=== PATIENT | female | born 1940 | race Caucasian/White ===

== ENCOUNTER → 2016-11-16 | Outpatient (CLI) | payer OTHER ==
[~2016-11-16] MED LIST: ACET-1138 PO; ATOR-24 PO; CALCTAB65; CHOL20005 PO; CYCL10TA6 PO; DILT120C68 PO; FRRG PO; LVNIS40 SQ; MAGN400T6 PO; OXYC15TA89 PO; RXC5 PO; SENN8.6T94 PO; SENNTAB23 PO; TEMA-79 PO
[2016-11-16 12:45] LABS: CHOLESTEROL/HDL RATIO 3.2
[2016-11-16 13:39] LABS: ESTIMATED AVERAGE GLUCOSE 120 mg/dl; HA1C FLAG Normal (Normal)
== END | disposition home or self-care (01) ==
LOC: C.LABBFT 09:15
PROVIDERS: ATTEND Internal Medicine
DX: E11.65 Type 2 diabetes mellitus with hyperglycemia (principal); E78.5 Hyperlipidemia, unspecified

== ENCOUNTER → 2017-04-10 | Outpatient (CLI) | payer OTHER ==
[2017-04-10 13:13] LABS: ESTIMATED AVERAGE GLUCOSE 117 mg/dl; HA1C FLAG Normal (Normal)
[2017-04-10 14:12] LABS: BLOOD UREA NITROGEN 12 mg/dl (7-18); BUN/CREATININE RATIO 14.2 (10-20); CARBON DIOXIDE 31 mmol/L (21-32); CHLORIDE 106 mmol/L (98-107); CREATININE 0.83 mg/dl (0.60-1.20); GLUCOSE 100 mg/dl (70-99); POTASSIUM 3.9 mmol/L (3.5-5.1); SODIUM 144 mmol/L (136-145)
== END | disposition home or self-care (01) ==
LOC: C.LABBFT 08:36
PROVIDERS: ATTEND Nurse Practitioner
DX: I10 Essential (primary) hypertension (principal); E11.65 Type 2 diabetes mellitus with hyperglycemia

== ENCOUNTER → 2017-04-12 | Outpatient (CLI) | payer OTHER | END | disposition home or self-care (01) | LOC: C.LABBFT 11:40 | PROVIDERS: ATTEND Internal Medicine | DX: R35.0 Frequency of micturition (principal) ==

== ENCOUNTER → 2017-05-03 | Outpatient (CLI) | payer OTHER | END | disposition home or self-care (01) | LOC: C.MAMM 10:13 | PROVIDERS: ATTEND Internal Medicine | DX: M81.0 Age-related osteoporosis without current pathological fracture (principal) ==

== ENCOUNTER → 2017-06-14 | Outpatient (CLI) | payer OTHER ==
--- NOTE | 2017-06-14 11:37 | DIAGNOSTIC IMAGING REPORT ---
RIGHT LOWER EXTREMITY VENOUS DOPPLER HISTORY: R LEG PAIN/SWELLING Right COMPARISON STUDY: Venous Doppler 09/25/2013. FINDINGS: There is normal compressibility, flow, and augmentation within the right lower extremity deep venous system. IMPRESSION: No DVT within the right lower extremity Electronically signed by: Chente Daniels M.D. 06/14/2017 11:36 AM Dictated Date/Time: 06/14/2017 11:35 AM
== END | disposition home or self-care (01) ==
LOC: C.ULTR 10:44
PROVIDERS: ATTEND Physician Assistant Medical
DX: M79.89 Other specified soft tissue disorders (principal); M79.604 Pain in right leg

== ENCOUNTER → 2017-09-01 | Outpatient (CLI) | payer OTHER | END | disposition home or self-care (01) | LOC: C.PAPS 10:00 | PROVIDERS: ATTEND Obstetrics & Gynecology | DX: C56.9 Malignant neoplasm of unspecified ovary (principal); Z78.0 Asymptomatic menopausal state ==

== ENCOUNTER → 2017-09-01 | Outpatient (CLI) | payer OTHER ==
[2017-09-01 17:40] LABS: BLOOD UREA NITROGEN 11 mg/dl (7-18); BUN/CREATININE RATIO 10.6 (10-20); CALCIUM 9.7 mg/dl (8.5-10.1); CARBON DIOXIDE 30 mmol/L (21-32); CHLORIDE 97 mmol/L (98-107); CREATININE 1.06 mg/dl (0.60-1.20); GLUCOSE 121 mg/dl (70-99); POTASSIUM 3.2 mmol/L (3.5-5.1); SODIUM 139 mmol/L (136-145)
== END | disposition home or self-care (01) ==
LOC: C.LAB1850 16:14
PROVIDERS: ATTEND Internal Medicine
DX: I10 Essential (primary) hypertension (principal); C56.9 Malignant neoplasm of unspecified ovary

== ENCOUNTER → 2017-12-05 | Outpatient (CLI) | payer OTHER ==
--- NOTE | 2017-12-05 09:55 | DIAGNOSTIC IMAGING REPORT ---
CHEST 2 VIEWS ROUTINE HISTORY: I10 Hypertension [id number] COMPARISON: Chest 02/15/2016. FINDINGS: No pneumothorax. The heart remains enlarged. No change in the mild left lateral basilar pleural thickening. No evidence for pulmonary edema. No new focal lung consolidations to suggest pneumonia. An IVC filter is partially visualized. Mild bibasilar interstitial thickening persists. This is likely chronic. IMPRESSION: No significant change compared to the prior study. No acute process. Stable cardiomegaly and basilar interstitial thickening. Electronically signed by: Chente Daniels M.D. 12/05/2017 9:53 AM Dictated Date/Time: 12/05/2017 9:52 AM
== END | disposition home or self-care (01) ==
LOC: C.RAD1850 09:42
PROVIDERS: ATTEND Physician Assistant Medical
DX: I10 Essential (primary) hypertension (principal)

== ENCOUNTER → 2017-12-05 | Outpatient (CLI) | payer OTHER ==
[2017-12-05 12:24] LABS: BASO % 0.8 %; BASO ABS # 0.04 K/uL (0-0.2); HEMATOCRIT 43.3 % (37-47); HEMOGLOBIN 14.2 g/dL (12.0-16.0); IG# 0.01 K/uL (0.00-0.02); LYMPH % 35.2 %; LYMPH ABS # 1.79 K/uL (1.2-3.4); MEAN CELL VOLUME 94.5 fL (80-100); MEAN CORPUSCULAR HGB CONC 32.8 g/dl (32-36); MEAN PLATELET VOLUME 10.5 fL (7.4-10.4); MONO % 7.3 %; MONO ABS # 0.37 K/uL (0.11-0.59); NEUT % 54.5 %; NEUT ABS # 2.77 K/uL (1.4-6.5); PLATELET COUNT 183 K/uL (130-400); RED CELL DISTRIBUTION WIDTH CV 13.6 % (11.5-14.5); RED CELL DISTRIBUTION WIDTH SD 46.6 fL (36.4-46.3); WHITE BLOOD COUNT 5.08 K/uL (4.8-10.8)
[2017-12-05 13:34] LABS: BLOOD UREA NITROGEN 7 mg/dl (7-18); CALCIUM 9.1 mg/dl (8.5-10.1); CARBON DIOXIDE 25 mmol/L (21-32); CREATININE 0.99 mg/dl (0.60-1.20); GLUCOSE 122 mg/dl (70-99); GLUCOSE,FASTING 122 mg/dl (70-99); POTASSIUM 3.1 mmol/L (3.5-5.1); SODIUM 137 mmol/L (136-145)
[2017-12-05 13:37] LABS: CHOLESTEROL 200 mg/dl (0-200); LDL CHOLESTEROL CALCULATED 99 mg/dl
== END | disposition home or self-care (01) ==
LOC: C.LABBFT 08:53
PROVIDERS: ATTEND Physician Assistant Medical
DX: I10 Essential (primary) hypertension (principal); E87.6 Hypokalemia; E78.5 Hyperlipidemia, unspecified; E11.65 Type 2 diabetes mellitus with hyperglycemia; E55.9 Vitamin D deficiency, unspecified

== ENCOUNTER → 2018-02-20 | Outpatient (CLI) | payer OTHER ==
--- NOTE | 2018-02-20 18:12 | DIAGNOSTIC IMAGING REPORT ---
MRI LUMBAR SPINE W/O CONTRAST CLINICAL HISTORY: M54.5 persistent back pain, history of ovarian carcinoma. TECHNIQUE: Sagittal and axial T1, T2 and STIR images were obtained. COMPARISON STUDY: No previous studies for comparison. OBSERVATIONS: The vertebral bodies and posterior elements appear intact. There is no abnormal bony signal present to suggest a marrow replacement process. L1-2: There is a mild circumferential disc bulge asymmetric to the left. There is no significant spinal stenosis. There is minimal left-sided foraminal narrowing. L2-3: There is a mild circumferential disc bulge. There is facet joint arthropathy. There is minimal spinal canal narrowing. There is no significant foraminal narrowing L3-4: There is a mild circumferential disc bulge. There is a minimal grade 1 spondylolisthesis of L3 on L4. There is slight flattening of the anterior thecal sac. There is no significant foraminal narrowing L4-5: No disc protrusions or extrusions. No evidence of spinal canal or neural foraminal compromise. There is facet joint arthropathy L5-S1: No disc protrusions or extrusions. No evidence of spinal canal or neural foraminal compromise. The conus medullaris and cauda equina appear normal. IMPRESSION: 1. Mild multilevel spondylitic change. No evidence of high-grade spinal stenosis. 2. No evidence of suspicious marrow replacement Electronically signed by: Gabo Farah M.D. 02/20/2018 6:11 PM Dictated Date/Time: 02/20/2018 6:07 PM
== END | disposition home or self-care (01) ==
LOC: C.MRI 17:14
PROVIDERS: ATTEND Nurse Practitioner
DX: M47.896 Other spondylosis, lumbar region (principal)

== ENCOUNTER 2019-06-27 11:37 | Inpatient (IN) ==
--- NOTE | 2019-06-11 10:40 | PAT Medication Instructions ---
Medication Instructions Date of Service June 11, 2019 Home Medications Medication Instructions Recorded atorvastatin 80 mg tablet 80 mg PO HS #90 tab 04/07/19 calcium carbonate 500 mg (1,250 1 tab PO DAILY #90 tab 04/07/19 mg)-vitamin D3 200 unit tablet cholecalciferol (vitamin D3) 2,000 2,000 unit PO QAM #90 tab 04/07/19 unit tablet ferrous sulfate 325 mg (65 mg 325 mg PO DAILY #90 tab 04/07/19 iron) tablet ketoconazole 2 % topical cream 1 applic TOPICAL BID PRN #60 gm 04/07/19 magnesium 400 mg (as magnesium 400 mg PO DAILY #90 tab 04/07/19 oxide) tablet meloxicam 7.5 mg tablet 7.5 mg PO BID PRN #180 tab 04/07/19 potassium chloride ER 20 mEq 20 meq PO BID #180 tab 04/07/19 tablet,extended release sennosides 8.6 mg tablet 17.2 mg PO HS PRN #180 tab 04/07/19 acetaminophen ER 650 mg 650 mg PO Q8H PRN #90 tab 04/10/19 tablet,extended release lorazepam 0.5 mg tablet 1 mg PO ONCE #3 tab 04/11/19 zolpidem 10 mg tablet 10 mg PO HS #14 tab 05/20/19 gabapentin 300 mg capsule 300 mg PO TID #270 cap 05/28/19 hydrocodone 5 mg-acetaminophen 325 1 tab PO Q8H #90 tab 05/28/19 mg tablet diltiazem ER 240 mg 240 mg PO QAM #90 tab 06/07/19 tablet,extended release 24 hr hydrochlorothiazide 25 mg tablet 25 mg PO QAM #90 tab 06/10/19 omeprazole 20 mg tablet,delayed 40 mg PO DAILY #180 tab 06/10/19 release ASK your surgeon for instructions meloxicam 7.5 mg tablet 7.5 mg PO BID NEEDED STOP taking 24 hours before surgery ketoconazole 2 % topical cream 1 applic TOPICAL BID NEEDED DO NOT take the morning of surgery calcium carbonate 500 mg (1,250 mg)-vitamin D3 200 unit tablet 1 tab PO DAILY cholecalciferol (vitamin D3) 2,000 unit tablet 2,000 unit PO QAM ferrous sulfate 325 mg (65 mg iron) tablet 325 mg PO DAILY magnesium 400 mg (as magnesium oxide) tablet 400 mg PO DAILY potassium chloride ER 20 mEq tablet,extended release 20 meq PO BID hydrochlorothiazide 25 mg tablet 25 mg PO QAM Take morning of surgery With a small sip of water, OTHERWISE NOTHING TO EAT OR DRINK AFTER MIDNIGHT: gabapentin 300 mg capsule PO TID diltiazem ER 240 mg tablet,extended release 24 hr 240 mg PO QAM omeprazole 20 mg tablet,delayed release 40 mg PO DAILY hydrocodone 5 mg-acetaminophen 325 mg tablet 1 tab PO Q8H (STOP 4 hours before surgery) acetaminophen [Tylenol 8 Hour] 650 mg PO Q8H NEEDED (if needed; STOP 4 hours before surgery) Take evening before surgery atorvastatin 80 mg tablet 80 mg PO HS potassium chloride ER 20 mEq tablet,extended release 20 meq PO BID zolpidem 10 mg tablet 10 mg PO HS gabapentin 300 mg capsule PO TID hydrocodone 5 mg-acetaminophen 325 mg tablet 1 tab PO Q8H acetaminophen [Tylenol 8 Hour] 650 mg PO Q8H NEEDED (if needed) sennosides 8.6 mg tablet 17.2 mg PO HS NEEDED (if needed) Other Notes If you have any questions please call us at [phone] or [phone] or [phone] or [phone]
--- NOTE | 2019-06-11 11:35 | Anesthesiology Consultation ---
Date of Service June 11, 2019 Assessment & Plan (1) Encounter for pre-operative examination: Chart Review Chart Review: Acceptable Risk for Surgery and Patient seen in Pre Admission Testing Consults Requested medical ([facility] (06/10)) Patient was seen by PCPs office on 06/10 for preoperative evaluation. Per not from that visit, "She has no present contraindications for surgery. Surgical risk is intermediate." Teaching & Discussion Pre-Anesthesia Teaching/Discussion Notes: Instructed NPO after midnight before surgery, except medications with 15 cc of water. Medication instructions provided according to the PAT guidelines. History Surgery Operation Date: 06/27/19 10:55 Proposed Procedures p Left Reversed Total Shoulder Arthroplasty, Biceps Tenodesis - Stefan Kahn MD Height/Weight Height: 5 ft 3 in Weight: 124.2 kg Allergies Allergy/AdvReac Type Severity Reaction Status Date / Time estrogens, conjugated Allergy Unknown Unknown Verified 06/10/19 10:18 reaction medroxyprogesterone Allergy Unknown Unknown Verified 06/10/19 10:18 reaction nickel Allergy Rash Verified 06/10/19 10:18 Medications Home Medications Medication Instructions Recorded Confirmed Last Taken acetaminophen [Tylenol 8 Hour] 650 mg PO Q12H PRN 04/01/19 06/10/19 05/13/19 atorvastatin 80 mg tablet 80 mg PO HS #90 tab 04/07/19 06/10/19 05/13/19 calcium carbonate 500 mg (1,250 1 tab PO DAILY #90 tab 04/07/19 06/10/19 05/13/19 mg)-vitamin D3 200 unit tablet cholecalciferol (vitamin D3) 2,000 2,000 unit PO QAM #90 tab 04/07/19 06/10/19 05/13/19 unit tablet ferrous sulfate 325 mg (65 mg 325 mg PO DAILY #90 tab 04/07/19 06/10/19 05/13/19 iron) tablet ketoconazole 2 % topical cream 1 applic TOPICAL BID PRN #60 gm 04/07/19 06/10/19 05/13/19 magnesium 400 mg (as magnesium 400 mg PO DAILY #90 tab 04/07/19 06/10/19 05/13/19 oxide) tablet meloxicam 7.5 mg tablet 7.5 mg PO BID PRN #180 tab 04/07/19 06/10/19 05/13/19 potassium chloride ER 20 mEq 20 meq PO BID #180 tab 04/07/19 06/10/19 05/13/19 tablet,extended release sennosides 8.6 mg tablet 17.2 mg PO HS PRN #180 tab 04/07/19 06/10/19 05/13/19 acetaminophen ER 650 mg 650 mg PO Q8H PRN #90 tab 04/10/19 06/10/19 05/13/19 tablet,extended release lorazepam 0.5 mg tablet 1 mg PO ONCE #3 tab 04/11/19 06/10/19 05/13/19 zolpidem 10 mg tablet 10 mg PO HS #14 tab 05/20/19 06/10/19 Unknown gabapentin 300 mg capsule 300 mg PO TID #270 cap 05/28/19 06/10/19 Unknown hydrocodone 5 mg-acetaminophen 325 1 tab PO Q8H #90 tab 05/28/19 06/10/19 Unkno wn mg tablet diltiazem ER 240 mg 240 mg PO QAM #90 tab 06/07/19 06/10/19 Unknown tablet,extended release 24 hr hydrochlorothiazide 25 mg tablet 25 mg PO QAM #90 tab 06/10/19 06/10/19 Unknown omeprazole 20 mg tablet,delayed 40 mg PO DAILY #180 tab 06/10/19 06/10/19 Unknown release Past Medical History Medical History Borderline diabetes mellitus GERD (gastroesophageal reflux disease) HTN (hypertension) History of migraine History of ovarian cancer 2010 - s/p LLOYD BSO + chemo Hyperlipidemia Morbid obesity Osteoarthritis Pulmonary embolism 2011 - treated w/ blood thinners - r/t cancer Exercise / Class Metabolic Activity III < 4 Walking/Shop/Light housework (Limited due to knee, back, and shoulder pain. Hasn't tried to climb a stair in a long time. Does report SOB and fatigue with activity. Denies CP. ) Past Family History Family History Grandfather (Paternal) Family history of diabetes mellitus Mother Congestive heart failure Father Multiple organ failure Other Hypertension Psoriasis Past Surgical History Surgical History History of arthroscopy of shoulder BL History of bilateral cataract extraction History of colonoscopy History of right knee joint replacement History of tooth extraction History of total abdominal hysterectomy and bilateral salpingo-oophorectomy History of tubal ligation History of vascular access device Removed Past Anesthesia History No Hx of Anesthesia Complications and No Family Hx of Anesthesia Complications History of PONV No Hx of PONV and No Hx of Motion Sickness Social History Smoking Status: Never smoker Do You Dip or Chew Tobacco: No Hx Alcohol Use: Yes Alcohol type: wine and hard liquor alcohol intake frequency: a few times a week Hx Substance Use: No substance use type: does not use Review of Systems Patient denies chest pain, shortness of breath, dyspnea on exertion reflux, cough, wheezing, palpitations. +ARZATE +Joint Pain (Shoulder, Back, Knees) Physical Exam Vital Signs BP: 148/68 P: 74 R: 18 T: 97.8 SPO2: 97% on RA Constitutional + morbidly obese ENMT Mouth: + dentures (Upper denture plate) and + poor dentition Thyromental Distance: < 3.5 Finger Breadths (2.5) Mallampati Class: III Mouth / Teeth: 1. Upper denture plate 2. Partial Neck normal visual inspection and + limited neck extension Respiratory normal respiratory effort Auscultation: lungs clear to auscultation bilaterally Cardiovascular Rate/Rhythm: regular rate and regular rhythm Heart Sounds: + murmur (1/6 systolic) Vessels: no carotid bruit Neurologic moves all extremities Psychiatric Orientation: alert and oriented x 3 Testing Laboratory Results 06/11/19 11:46 06/11/19 11:46 PT 10.7 Seconds (9.0-12.0) 06/11/19 11:46 INR 1.0 (0.9-1.1) 06/11/19 11:46 APTT 24.7 Seconds (21.0-31.0) 06/11/19 11:46 Hemoglobin A1c 6.3 % (4.5-5.6) H 06/11/19 11:46 Urine Color Yellow 06/11/19 Unknown Urine Appearance Clear (Clear) 06/11/19 Unknown Urine pH 8.0 (4.5-7.5) H 06/11/19 Unknown Ur Specific [place] 1.008 (1.000-1.030) 06/11/19 Unknown Urine Protein Negative (Negative) 06/11/19 Unknown Urine Glucose (UA) Negative (Negative) 06/11/19 Unknown Urine Ketones Negative (Negative) 06/11/19 Unknown Urine Nitrite Negative (Negative) 06/11/19 Unknown Ur Leukocyte Esterase Trace (Negative) H 06/11/19 Unknown Urine WBC (Auto) 1-5 /hpf (0-5) 06/11/19 Unknown Urine RBC (Auto) 0-4 /hpf (0-4) 06/11/19 Unknown U Hyaline Cast (Auto) 0 /lpf (0-5) 06/11/19 Unknown U Epithel Cells (Auto) 20-30 /lpf (0-5) H 06/11/19 Unknown Urine Bacteria (Auto) Negative (Negative) 06/11/19 Unknown Blood Type A Positive 06/11/19 11:46 Antibody Screen NEGATIVE 06/11/19 11:46 Electrocardiogram Date: 06/11/19 Findings: + NSR @ (77) and + no change from (02/15/16) Chest X-Ray Date: 06/11/19 FINDINGS: Lung volumes are normal. There is no pneumothorax or pleural effusion. Hazy left basilar opacity is due to epicardial fat pad. This is unchanged. There is no consolidation to suggest pneumonia. Apparent hazy left basilar opacity is unchanged. Note is made of mild cardiomegaly. The appearance of the chest is unchanged. IVC filter is partially imaged. IMPRESSION: 1. No acute cardiopulmonary findings. No change in appearance of the chest. 2. Mild cardiomegaly.
--- NOTE | 2019-06-11 12:19 | XRay Report ---
XR chest Pre-admission PA/Lat CLINICAL HISTORY: Preoperative evaluation. COMPARISON STUDY: Chest radiograph September 25, [address] October 23, 2013. Chest radiograph December 05, 2017. FINDINGS: Lung volumes are normal. There is no pneumothorax or pleural effusion. Hazy left basilar op acity is due to epicardial fat pad. This is unchanged. There is no consolidation to suggest pneumonia . Apparent hazy left basilar opacity is unchanged. Note is made of mild cardiomegaly. The appearance of the chest is unchanged. IVC filter is partially imaged. IMPRESSION: 1. No acute cardiopulmonary findings. No change in appearance of the chest. 2. Mild cardiomegaly. Electronically signed by: Tiago Reno M.D. 06/11/2019 12:18 PM
[2019-06-11 12:26] LABS: Basophils # (auto) 0.03 K/uL (0-0.2); Basophils % (auto) 0.6 %; Eosinophils # (auto) 0.08 K/uL (0-0.5); Eosinophils % (auto) 1.7 %; Hemoglobin 12.3 g/dL (12.0-16.0); Immature Granulocytes # (auto) 0.01 K/uL (0.00-0.02); Immature Granulocytes % (auto) 0.2 %; Lymphocytes # (auto) 1.29 K/uL (1.2-3.4); Lymphocytes % (auto) 27.7 %; Mean Corpuscular Hgb Conc 31.5 g/dL (32-36); Mean Corpuscular Volume 94.2 fL (80-100); Mean Platelet Volume 10.3 fL (7.4-10.4); Monocytes # (auto) 0.34 K/uL (0.11-0.59); Monocytes % (auto) 7.3 %; Neutrophils % (auto) 62.5 %; Platelet Count 191 K/uL (130-400); RDW Coefficient of Variation 13.9 % (11.5-14.5); RDW Standard Deviation 47.8 fL (36.4-46.3); Red Blood Count 4.14 M/uL (4.2-5.4); White Blood Count 4.65 K/uL (4.8-10.8)
[2019-06-11 12:31] LABS: Appearance Urine Clear (Clear); Bacteria Urine Automated Negative (Negative); Bilirubin Urine Negative (Negative); Blood Urine Negative (Negative); Cast Urine Automated 0 /lpf (0-5); Color Urine Yellow; Epithelial Cell Urine Auto 20-30 /lpf (0-5); Glucose Urine UA Negative (Negative); Ketones Urine Negative (Negative); Leukocyte Esterase Urine Trace (Negative); Nitrite Urine Negative (Negative); Protein Urine Negative (Negative); RBC Urine Automated 0-4 /hpf (0-4); Specific Gravity Urine 1.008 (1.000-1.030); Urobilinogen Urine Negative (Negative)
[2019-06-11 12:40] LABS: Partial Thromboplastin Ratio 0.9; Partial Thromboplastin Time 24.7 Seconds (21.0-31.0); Prothrombin Time 10.7 Seconds (9.0-12.0)
[2019-06-11 12:48] LABS: Estimated Average Glucose 134 mg/dl; Hemoglobin A1C 6.3 % (4.5-5.6)
[2019-06-11 14:45] LABS: Albumin Level 3.2 gm/dl (3.4-5.0); BUN Creatinine Ratio 11.2 (10-20); Creatinine Clr Calc Pharmacy 67.5 ml/min; Est GFR (African American) 72.9; Est GFR (Non-African American) 62.9; Potassium 3.5 mmol/L (3.5-5.1)
--- NOTE | 2019-06-26 18:14 | History and Physical Report ---
DATE OF ADMISSION: 06/27/2019 CHIEF COMPLAINT: Chronic left shoulder pain and weakness. HISTORY OF PRESENT ILLNESS: This is a 78-year-old female patient of Dr. Kahn'ivana complaining of chronic left shoulder rotator cuff tear with weakness and pain. She has failed conservative treatment. She has been diagnosed with MRI and x-rays and wishes to proceed with a left reverse total shoulder arthroplasty and biceps tenodesis. PAST MEDICAL HISTORY: Hypertension, hypercholesterolemia, pulmonary embolism in 2010, upper back problems, sciatica, obesity, ovarian cancer. SOCIAL HISTORY: Nonsmoker, nondrinker. PAST SURGICAL HISTORY: Ovarian surgery secondary to cancer, right knee replacement, bilateral cataracts, left shoulder scope and right shoulder scope. FAMILY HISTORY: Noncontributory. REVIEW OF SYSTEMS: Chronic left shoulder pain and weakness. Otherwise, denies any shortness of breath, chest pain, nausea, vomiting or any other joint complaints. MEDICATIONS: 1. Lovenox 150 mg subQ every 12 hours. 2. Magnesium 200 mg 2 tablets daily. 3. Temazepam 15 mg at bedtime as needed. 4. Crestor 10 mg daily. 5. Cyclobenzaprine daily. 6. Diltiazem 120 mg daily. 7. Lisinopril 20 mg daily. 8. Ambien 10 mg at bedtime. 9. Zetia 10 mg daily. 10. Omeprazole 10 mg 2 capsules daily. 11. Fosamax 75 1 every week in the morning. 12. Mobic 15 mg daily. ALLERGIES: No known drug allergies. PHYSICAL EXAMINATION: GENERAL: Well-developed, well-nourished 78-year-old female in no acute distress. She is alert and oriented x3 and pleasant. HEENT: Normocephalic, atraumatic. Extraocular motions are intact. Pupils are equal and reactive to light. HEART: Regular rate and rhythm, no murmurs. LUNGS: Clear. ABDOMEN: Soft, nontender, bowel sounds present. EXTREMITIES: Left shoulder active range of motion of 0-120, passively to 170 with pain. She has 4/5 strength with pain globally. Neurologically and vascularly she is intact in her left upper extremity. DIAGNOSES: Left shoulder rotator cuff arthropathy. She also has a history of hypertension, hypercholesterolemia, pulmonary embolism, upper back problems, sciatica, obesity and ovarian cancer. PLAN: The patient was advised of her diagnosis. Indications, risks, benefits, postop course have all been reviewed. The patient wished to proceed with a left reverse total shoulder arthroplasty and biceps tenodesis. Necessary consent forms, preoperative testing and clearances will be obtained. JESSICA
[~2019-06-27 11:37] MED LIST changes: -ACET-1138 PO; +ACETAMINOPHEN 500 MG TAB PO SCH; -ATOR-24 PO; -CALCTAB65; +CEFAZOLIN 3000MG 72.5 ML IV SCH; -CHOL20005 PO; -CYCL10TA6 PO; +CeleBREX 200 MG CAP PO SCH; -DILT120C68 PO; +FAMOTIDINE 20 MG TAB PO SCH; -FRRG PO; +GABAPENTIN 300 MG CAP PO SCH; +LR 15ML/HR IV SCH; -LVNIS40 SQ; -MAGN400T6 PO; +METOCLOPRAMIDE HCL 10 MG TABLET PO SCH; -OXYC15TA89 PO; +ROPIVACAINE 0.5% 5 MG/ML 30 ML VIAL ONE; -RXC5 PO; -SENN8.6T94 PO; -SENNTAB23 PO; -TEMA-79 PO; +dexAMETHasone 4 MG TAB PO SCH
[2019-06-27] MEDS ORDERED: LIDOCAINE HCL 2% 2 ML VIAL/AMP(20MG/ML) INFIL ONE (11:57)
[2019-06-27] MEDS ORDERED: DEXAMETHASONE SOD INJ 4 MG/ML VIAL ONE (11:57)
[2019-06-27] MEDS ORDERED: ONDANSETRON INJ 2 MG/ML 2 ML VIAL ONE (11:57)
[2019-06-27] MEDS ORDERED: ROCURONIUM BROMIDE 10 MG/ML 5 ML VIAL ONE (11:57)
[2019-06-27] MEDS ORDERED: GLYCOPYRROLATE 0.2 MG/ML VIAL ONE ×2 (11:57→17:33)
[2019-06-27] MEDS ORDERED: PROPOFOL IV EMULSION 10 MG/ML 20 ML VIAL IV ONE (11:57)
[2019-06-27] MEDS ORDERED: MIDAZOLAM HCL 1 MG/ML 2ML VIAL ONE (11:58)
[2019-06-27] MEDS ORDERED: fentaNYL citrate 100 MCG/2 ML VIAL ONE (11:58)
[2019-06-27] MEDS ORDERED: KETAMINE HCL INJ 50 MG/ML 10 ML VIAL ONE (11:58)
--- NOTE | 2019-06-27 12:45 | History & Physical Bridge Note ---
Date of Service June 27, 2019 History & Physical Bridge Note I have examined the patient, reviewed the History & Physical and in the interval since the performance of the History & Physical I have noted the following changes of clinical significance: no changes noted
[2019-06-27] MEDS ORDERED: ePHEDrine sulfate 50 MG/ML AMP IV PRN ×2 (14:49→15:01)
[2019-06-27] MEDS ORDERED: HYDROmorphone INJ 1 MG/ML SYRINGE IV PRN ×2 (14:49→15:01)
[2019-06-27] MEDS ORDERED: ATROPINE SULFATE 0.1 MG/ML 10ML SYR IV PRN ×2 (14:49→15:01)
[2019-06-27] MEDS ORDERED: BACITRACIN INJ 50,000 UNIT VIAL ONE (14:53)
[2019-06-27] MEDS ORDERED: NEOSTIGMINE METHYLSULFATE 5 MG/5 ML SYR ONE (17:33)
--- NOTE | 2019-06-27 17:58 | Post Operative Brief Note ---
Immediate Post Op Note v1 Date of Surgery June 27, 2019 Pre & Post Diagnosis Operation Date: 06/27/19 14:15 Pre-Op Diagnosis: Left Shoulder Rotator Cuff Arthropathy, rotator cuff tendinopathy with rotator cuff tear, osteoarthritis glenohumeral joint, biceps tendinitis tendinopathy, morbid obesity BMI 47.3. Post-Op Diagnosis: Left Shoulder Rotator Cuff Arthropathy, rotator cuff tendinopathy with rotator cuff tear supraspinatus, subacromial bursal collection with multiple loose bodies, split biceps tendon with biceps tendinopathy, osteoarthritis zafar humeral joint, morbid obesity BMI 47.3 Procedure Operation Date: 06/27/19 14:15 Actual Procedures p Left Reversed Total Shoulder Arthroplasty (Uncemented) with Biceps Tenodesis(Left) excision subacromial subcoracoid bursa excision multiple loose bodies, increased level difficulty due to morbid obesity BMI 47.3- Stefan Kahn MD Surgeon Stefan Kahn MD Professor Of Biostatistics Chad FITZGERALD Estimated Blood Loss 50 Findings Consistent with Post-Op Diagnosis Specimens Humeral head Drains Hemovac Drain Anesthesia Type General Regional Complications none Disposition Accompanied Patient To Recovery: No Disposition: Recovery Room Overlapping Procedure I was immediately available: during the entire case.
--- NOTE | 2019-06-27 18:18 | Operative Report ---
Post Operative Report Pre & Post Diagnosis Operation Date: 06/27/19 14:15 Pre-Op Diagnosis: Left Shoulder Rotator Cuff Arthropathy, rotator cuff tear, glenohumeral osteoarthritis, biceps tendinopathy, subcoracoid bursal fluid collection, morbid obesity BMI 47.3. Post-Op Diagnosis: Left Shoulder Rotator Cuff Arthropathy, rotator cuff tear, rotator cuff and biceps tendinopathy, subcoracoid and subacromial bursal fluid collection with multiple loose bodies, osteoarthritis glenohumeral joint, obesity BMI 47.3 Procedure Operation Date: 06/27/19 14:15 Actual Procedures p Left Reversed Total Shoulder Arthroplasty (Uncemented) with Biceps Tenodesis(Left) excision subcoracoid and subacromial bursal fluid collection and bursa scarred tissue with removal multiple loose bodies, increase of difficulty due to BMI 47.3..- Stefan Kahn MD Surgeon Stefan Kahn MD Program Coordinator Chad FITZGERALD Estimated Blood Loss 50 Findings Consistent with Post-Op Diagnosis Specimens Humeral head Drains 2 Hemovac Anesthesia Type General Regional Complications none Disposition Accompanied Patient To Recovery: No Disposition: Recovery Room Indications 70-year female with chronic shoulder pain failed conservative management. X- rays and MRI demonstrate that she has significant narrowing the glenohumeral joint with osteoarthritis of the glenohumeral joint severe per MRI. Patient has severe rotator cuff tendinopathy with full-thickness supraspinous rotator cuff tear and large complex fluid collection subcoracoid subacromial bursal fluid collection with similar large fluid collection with biceps tendinopathy possible split biceps tendon possible loose bodies. Patient has morbid obesity BMI 47.3. This includes her arm area. Description of Procedure The patient was taken to the operating room and anesthetized under regional block and general anesthetic. The patient was positioned on the operating table in a 30 beachchair position with a towel roll under the medial border of the left scapula. The arm was draped free to be able to manipulate the shoulder as needed. The left upper extremity was prepped and draped in usual sterile fashion. Exam demonstrated she had reasonable range of motion about 160 degrees of forward elevation external rotation to 60 degrees abduction to 90 degrees. She had very heavy obese arm. An anterior deltopectoral approach was performed. A longer than usual longitudinal incision was made for exposure due to the obesity in the deltopectoral interval. The skin was incised sharply. Subcutaneous flaps were elevated off the fascia. The cephalic vein was dissected out and retracted lateral with the deltoid. The scarred clavipectoral fascia was divided at the lateral margin of the conjoined tendon and extended up to the CA ligament. The following findings were noted: There was very thickened bursa tissue and subcoracoid region possibly subcoracoid impingement there was chronic tendi nopathy of subscapularis tendon with a scarred subscapularis tendon tissue underlying the fluid collection or multiple loose bodies and the fluid collection was pretty cartilaginous loose bodies. The subscapularis tendon tissue was intact although there was degenerative tendinopathy of the tendon. There is a full-thickness tear of the supraspinatus tendon in the posterior aspect between the supraspinatus and infraspinatus with the anterior fibers still intact. There is a fluid collection with multiple loose bodies in the area of the tear of the rotator cuff in the subdeltoid region as well. All this thickened bursal tissue was resected and subcoracoid region all loose bodies were resected. The upper centimeter of the pectoralis was released for inferior exposure. The biceps tendon findings demonstrated there was marked biceps tenosynovitis also some loose bodies in biceps tendon sheath which was resected along with loose bodies. The biceps tendon was noted to have a split biceps tendon and in the joint proximal widening and marked tendinopathy. the biceps tendon was tenodesed to the pectoralis tendon with #2 FiberWire. The proximal biceps was resected. The subscapularis tendon was taken down off the lesser tuberosity using a subperiosteal dissection. A #1 Vicryl traction suture was placed into the free end of the subscapularis tendon and capsule. The subscapular muscle fibers were split longitudinally at the level of the circumflex vessels. The circumflex vessels were identified and tied off with silk ties and divided laterally. A Kitner elevator was used to free up the inferior fibers of the subscapularis off of the capsule. The axillary nerve was identified with a tug test and protected with a blunt Dominguez retractor between the nerve and the capsule. The subscapularis tendon was then taken down off of the lesser tuberosity subperiosteally and subperiosteal dissection was performed along the neck of the humerus as the arm is gradually actually rotated exposing the humeral head. Retractors were readjusted and the small inferior osteophytes were all resected using a rongeur. The humeral head had osteoarthritic wear with concentric wear type pattern. A Tolliver elevator was used to assist in releasing the capsule of the neck of the humerus. The capsule was divided with Prajapati scissors down to the glenoid released off the anterior glenoid and the rotator interval was released to meet the capsular release and a 360 release of the subscapularis was accomplished. A Fukuda retractor was placed into the joint retracting the humeral head posterior. Glenoid findings demonstrated some inferior spurs along the glenoid osteoarthritis diffuse and symmetrical wear. The labrum and biceps tendon was resected. an anterior-inferior and posterior inferior capsular release were performed with electrocautery and a Tollievr elevator on bone with the axillary nerve protected inferiorly by the retractor. Attention was then taken to the humeral preparation. The portion of the supraspinatus that was still intact was released and infraspinatus was preserved. The cutting guide was placed into the humeral head. It was positioned at 20 of retroversion. Oscillating saw was used to resect the humeral head giving the cut above the level of the posterior rotator cuff insertion site. The humerus was then prepared for the stem. I used the ascend flex stem from [employer]. The sizing broaches were used followed by trial broaches up to a size 3B long which had the appropriate fit and fill. The appropriate sized cut protector was placed. The humerus was then retracted posterior to the glenoid. The glenoid was sized for a 25 baseplate and 36 glenoid sphere. The guide for the baseplate was positioned in a 10 inferior tilt and the central drill hole was made. The reamer for the 25 baseplate was used. The central drill was widened for the peg. The 25 aequalis hydroxyapatite-coated titanium baseplate was impacted into position. The base plate was transfixed with superior and inferior locking screws and anterior and posterior compression screws with stable fixation. The fan reamer was used for the 36 millimeter glenoid sphere. After irrigation the 36 standard titanium glenoid sphere was impacted onto the baseplate and the screw was tightened. This was used due to a nickel allergy. Attention was taken back to the humerus. The cut protector was removed and the plus or high offset humeral tray trial was assembled to the trial stem rotated appropriately to get bony coverage and then screwed in position. A trial reduction was per formed. A +6/36 trial insert demonstrated good stability and no shuck. The trials were removed. 3 drill holes are made into the harder bone in the bicipital groove area and 3 #5 FiberWire sutures were placed transosseously. The canal was irrigated with antibiotic solution with bacitracin. The final component was assembled. The final component was 3B long humeral stem plus or high offset humeral tray with 36/+6 humeral insert. This was then impacted into the humerus with a tight press-fit. It was reduced to the glenoid sphere. Stability was verified. Subscapularis was repaired with the #5 FiberWire sutures using Ton-Prudencio suture technique. Lateral row soft tissue repair was performed with #2 FiberWire [id number] sutures. The pectoralis was repaired with #2 FiberWire [id number] sutures reinforcing the biceps tendon tenodesis. The arm was taken through a range of motion which demonstrated 130 degrees flexion 85 degrees abduction external rotation to 45 degrees without tension on repair. The implant was stable through the range of motion tested. The wound was copiously irrigated. 2 Hemovac drains were placed. The deltopectoral interval was closed with [id number] #1 Vicryl sutures. The subcutaneous tissues were closed with 2-0 Vicryl sutures. The skin was closed with nickel free carlitos. Sterile dressings were applied and a shoulder immobilizer. There was increased level difficulty in the procedure causing increased length surgery time. This was due to her morbid obesity. Increased level difficulty with exposure retraction positioning added to the length of surgery. Chad FITZGERALD my physician bilingual medical assistant assisted in the procedure to the entire procedure including patient positioning arm positioning prepping and draping soft tissue retraction instrument management suture management and performed the subcutaneous and skin closure and will participate in the postoperative care of the patient. I attest to the content of the Intraoperative Record and any orders documented therein. Any exceptions are noted below.
--- NOTE | 2019-06-27 18:44 | XRay Report ---
XR shoulder LT min 2V routine CLINICAL HISTORY: 78 years-old Female presenting with Post shoulder surgery. TECHNIQUE: Frontal and transscapular Y views of the left shoulder were obtained. COMPARISON: MR from 04/24/2019. FINDINGS: There has been interval reverse left total shoulder arthroplasty. No periprosthetic fracture or malal ignment. Overlying skin carlitos and a surgical drain in place. Acromioclavicular joint congruent. Lef t basilar opacity suspected. IMPRESSION: 1. Expected postsurgical appearance status post for reversed total left shoulder arthroplasty. 2. Possible left basilar atelectasis. Electronically signed by: Alexandro Blair M.D. 06/27/2019 6:43 PM
--- NOTE | 2019-06-27 18:47 | Anesthesiology Progress Note ---
Date of Service June 27, 2019 Anesthesia Post Procedure Vital Signs Vital Signs: Temp Pulse Pulse Pulse Resp BP BP 06/27/19 18:36 79 18 06/27/19 18:35 78 20 06/27/19 18:31 79 15 06/27/19 18:30 80 16 138/85 06/27/19 18:26 84 19 06/27/19 18:25 83 18 06/27/19 18:21 83 19 06/27/19 18:20 82 18 146/78 H 06/27/19 18:16 82 21 06/27/19 18:15 77 24 142/87 H 06/27/19 18:11 81 15 06/27/19 18:10 79 17 132/73 06/27/19 18:09 83 20 130/76 06/27/19 12:34 98.6 F 83 18 132/87 06/27/19 08:09 97.3 F L 83 12 130/76 Pulse Ox 06/27/19 18:36 97 06/27/19 18:35 96 06/27/19 18:31 98 06/27/19 18:30 98 06/27/19 18:26 96 06/27/19 18:25 96 06/27/19 18:21 96 06/27/19 18:20 96 06/27/19 18:16 91 06/27/19 18:15 93 06/27/19 18:11 94 06/27/19 18:10 92 06/27/19 18:09 92 06/27/19 12:34 92 06/27/19 08:09 94 Pain Intensity Left Shoulder: Pain Intensity: 0 Transfer of Care Handoff Completed per policy Notes Mental Status: alert / awake / arousable and participated in evaluation Patient Amnestic to Procedure: Yes Nausea / Vomiting: adequately controlled Pain: adequately controlled Airway Patency, RR, SpO2: stable & adequate BP & HR: stable & adequate Hydration State: stable & adequate Anesthetic Complications: no major complications apparent and Pt Satisfied with anesthetic care
[2019-06-27] MEDS ORDERED: BISACODYL 10 MG SUPP PR PRN (18:58)
[2019-06-27] MEDS ORDERED: NALOXONE HCL 0.4 MG/1 ML VIAL/CARP IV PRN (18:58)
[2019-06-27] MEDS ORDERED: HYDROmorphone INJ 0.5 MG/0.5 ML SYR IV PRN (18:58)
[2019-06-27] MEDS ORDERED: METOCLOPRAMIDE HCL INJ 5 MG/ML 2 ML VIAL IV PRN (18:58)
[2019-06-27] MEDS ORDERED: MAGNESIUM HYDROXIDE SUSP 30 ML UDC PO PRN (18:58)
[2019-06-27] MEDS ORDERED: ONDANSETRON INJ 2 MG/ML 2 ML VIAL IV PRN (18:58)
[2019-06-27] MEDS ORDERED: TRAZODONE HCL 50 MG TAB PO PRN (18:58)
[2019-06-27] MEDS: POTASSIUM CHLORIDE 20 MEQ TABCR PO SCH (20:35)
[2019-06-27] MEDS: ATORVASTATIN 40 MG TAB PO SCH (20:35)
[2019-06-27] MEDS: DOCUSATE SODIUM 100 MG CAP PO SCH (20:35)
[2019-06-27] MEDS: SENNA 8.6 MG TAB PO SCH (20:35)
[2019-06-27] MEDS: GABAPENTIN 300 MG CAP PO SCH (20:36)
[2019-06-27] MEDS: CEFAZOLIN 2000MG 2,000 MG/15 ML SYR IV SCH (20:42)
--- NOTE | 2019-06-27 21:56 | Hospitalist Consultation ---
Date of Consultation June 27, 2019 Assessment & Plan (1) Benign essential hypertension: Monitor BP Continue Diltiazem XR Present on Admission?: Yes (2) Hyperlipidemia: Continue atorvastatin. (3) GERD (gastroesophageal reflux disease): Continue pantoprazole (4) History of pulmonary embolus (PE): Patient had a PE in 2010 associated with ovarian CA. Ortho already ordered Xarelto 10mg po daily for VTE prophylaxis. Present on Admission?: No (5) Rotator cuff arthropathy of left shoulder: POD #0 L rotator cuff repair. [facility] Hospitalist service with follow with you. Thank you for this consultation. History of Present Illness Reason for Consultation: Medical management. Attending Physician: Stefan Kahn MD History of Present Illness 78 y/o female underwent repair of L rotator cuff tear today. I saw the patient in her room. She is feeling well, reporting that her pain is under control. She declines having chest pain, SOB, cough, headache, abdominal pain or nausea and vomiting. She was just finishing evening meal. Allergies Allergy/AdvReac Type Severity Reaction Status Date / Time estrogens, conjugated Allergy Unknown Unknown Verified 06/27/19 12:13 reaction medroxyprogesterone Allergy Unknown Unknown Verified 06/27/19 12:13 reaction nickel Allergy Rash Verified 06/27/19 12:13 Home Medications Home Medications Medication Instructions Recorded Confirmed Type acetaminophen [Tylenol 8 Hour] 650 mg PO Q12H PRN 04/01/19 06/10/19 History atorvastatin 80 mg tablet 80 mg PO HS #90 tab 04/07/19 06/27/19 Rx calcium carbonate 500 mg (1,250 1 tab PO DAILY #90 tab 04/07/19 06/27/19 Rx mg)-vitamin D3 200 unit tablet cholecalciferol (vitamin D3) 2,000 2,000 unit PO QAM #90 tab 04/07/19 06/27/19 Rx unit tablet ferrous sulfate 325 mg (65 mg 325 mg PO DAILY #90 tab 04/07/19 06/27/19 Rx iron) tablet ketoconazole 2 % topical cream 1 applic TOPICAL BID PRN #60 gm 04/07/19 06/27/19 Rx magnesium 400 mg (as magnesium 400 mg PO DAILY #90 tab 04/07/19 06/27/19 Rx oxide) tablet meloxicam 7.5 mg tablet 7.5 mg PO BID PRN #180 tab 04/07/19 06/27/19 Rx potassium chloride ER 20 mEq 20 meq PO BID #180 tab 04/07/19 06/27/19 Rx tablet,extended release sennosides 8.6 mg tablet 17.2 mg PO HS PRN #180 tab 04/07/19 06/27/19 Rx acetaminophen ER 650 mg 650 mg PO Q8H PRN #90 tab 04/10/19 06/10/19 Rx tablet,extended release lorazepam 0.5 mg tablet 1 mg PO ONCE #3 tab 04/11/19 06/27/19 Rx zolpidem 10 mg tablet 10 mg PO HS #14 tab 05/20/19 06/10/19 Rx gabapentin 300 mg capsule 300 mg PO TID #270 cap 05/28/19 06/27/19 Rx hydrocodone 5 mg-acetaminophen 325 1 tab PO Q8H #90 tab 05/28/19 06/27/19 Rx mg tablet diltiazem ER 240 mg 240 mg PO QAM #90 tab 06/07/19 06/27/19 Rx tablet,extended release 24 hr hydrochlorothiazide 25 mg tablet 25 mg PO QAM #90 tab 06/10/19 06/10/19 Rx omeprazole 20 mg tablet,delayed 40 mg PO DAILY #180 tab 06/10/19 06/27/19 Rx release trazodone 50 mg tablet See Rx Instructions PO DAILY PRN 06/18/19 06/27/19 Rx #60 tab Patient History Medical History Borderline diabetes mellitus GERD (gastroesophageal reflux disease) HTN (hypertension) History of migraine History of ovarian cancer 2010 - s/p LLOYD BSO + chemo Hyperlipidemia Morbid obesity Osteoarthritis Pulmonary embolism 2010 - treated w/ blood thinners - r/t cancer Surgical History History of arthroscopy of shoulder BL History of bilateral cataract extraction History of colonoscopy History of right knee joint replacement History of tooth extraction History of total abdominal hysterectomy and bilateral salpingo-oophorectomy History of tubal ligation History of vascular access device Removed Family History Grandfather (Paternal) Family history of diabetes mellitus Mother Congestive heart failure Father Multiple organ failure Other Hypertension Psoriasis Social History Preferred Language: Citizen Of [place] Communication Ability: Effective Backpackers Manager Required: No Beliefs That Will Affect Care: None Current Living Situation: Alone Feels Safe at Home: Yes Safety Concerns: Feels Safe At This Time Smoking Status: Never smoker Do You Dip or Chew Tobacco: No ; Second Hand Exposure: Yes ( used to smoke) ; Hx Alcohol Use: Yes Alcohol type: wine and hard liquor Hx Substance Use: No Review of Systems Review of Systems: NEEDS EDITING Constitutional- no fever; no weight loss Eyes- no acute visual changes ENT- no sinus drainage; no pharyngitis Pulmonary- no cough, no wheezing, no shortness of breath Cardiac- no chest pain, no palpitations, no orthopnea, no dependent edema GI- no nausea, no vomiting, no diarrhea, no melena, no hematochezia - no dysuria, no hematuria Musculoskeletal- no arthralgias, no myalgias Derm- no rashes, no new skin lesions, no changing skin lesions Hematologic- no unusual bruising, no unusual bleeding Lymphatics- no adenopathy Endocrine- no polyuria or polydipsia; no heat or cold intolerance Neuro- no headaches, no focal neurologic symptoms Psych- no anxiety, no depression Physical Exam Physical Exam: NEEDS EDITING General- adult, not in distress. Head- atraumatic Eyes- PERRL, EOMI, anicteric ENT- oropharynx clear Neck- supple, no JVD, no adenopathy, no thyromegaly; carotids +2/2, no bruits appreciated Lungs- clear to auscultation and percussion Heart- regular rhythm; no murmur, no gallop, no rub appreciated Abdomen- normal bowel sounds, soft, nontender, no masses or hepatosplenomegaly Extremities- + trace non-pitting ankle edema. no calf tenderness; peripheral pulses intact. Left arm has dressing over shoulder which is clean and dry. Neuro- alert, oriented x 3; PERRL, EOMI; no facial palsy; no dysarthria; motor 5/5 bilaterally. Skin- warm & dry Results & Data Vital Signs (Past 12 Hours) Vital Signs Temp Pulse Pulse Pulse Resp BP BP 06/27/19 21:03 92 H 16 116/72 06/27/19 20:11 88 16 129/67 06/27/19 19:35 36.6 C 80 20 142/82 H 06/27/19 19:05 36.6 C 78 17 135/78 06/27/19 18:57 36.8 C 06/27/19 18:56 76 20 06/27/19 18:55 78 14 142/94 H 06/27/19 18:51 77 15 06/27/19 18:50 78 15 148/87 H 06/27/19 18:46 75 15 06/27/19 18:45 78 14 141/83 H 06/27/19 18:41 74 19 06/27/19 18:40 79 14 146/82 H 06/27/19 18:37 14 06/27/19 18:36 79 18 06/27/19 18:35 78 20 06/27/19 18:31 79 15 06/27/19 18:30 80 16 138/85 06/27/19 18:26 84 19 06/27/19 18:25 83 18 06/27/19 18:21 83 19 06/27/19 18:20 82 18 146/78 H 06/27/19 18:16 82 21 06/27/19 18:15 77 24 142/87 H 06/27/19 18:11 81 15 06/27/19 18:10 79 17 132/73 06/27/19 18:09 83 20 130/76 06/27/19 12:34 37.0 C 83 18 132/87 Pulse Ox 06/27/19 21:03 99 06/27/19 20:11 97 06/27/19 19:35 98 06/27/19 19:05 96 06/27/19 18:57 97 06/27/19 18:56 97 06/27/19 18:55 97 06/27/19 18:51 97 06/27/19 18:50 97 06/27/19 18:46 97 06/27/19 18:45 96 06/27/19 18:41 97 06/27/19 18:40 96 06/27/19 18:37 97 06/27/19 18:36 97 06/27/19 18:35 96 06/27/19 18:31 98 06/27/19 18:30 98 06/27/19 18:26 96 06/27/19 18:25 96 09/12/19 18:21 96 06/27/19 18:20 96 06/27/19 18:16 91 06/27/19 18:15 93 06/27/19 18:11 94 06/27/19 18:10 92 06/27/19 18:09 92 06/27/19 12:34 92 Laboratory Results Laboratory Results WBC 4.65 K/uL (4.8-10.8) L 06/11/19 11:46 RBC 4.14 M/uL (4.2-5.4) L 06/11/19 11:46 Hgb 12.3 g/dL (12.0-16.0) 06/11/19 11:46 Hct 39.0 % (37-47) 06/11/19 11:46 MCV 94.2 fL (80-100) 06/11/19 11:46 MCH 29.7 pg (25-34) 06/11/19 11:46 MCHC 31.5 g/dL (32-36) L 06/11/19 11:46 RDW Std Deviation 47.8 fL (36.4-46.3) H 06/11/19 11:46 RDW Coeff of Terence 13.9 % (11.5-14.5) 06/11/19 11:46 Plt Count 191 K/uL (130-400) 06/11/19 11:46 MPV 10.3 fL (7.4-10.4) 06/11/19 11:46 Immature Gran % (Auto) 0.2 % 06/11/19 11:46 Neut % (Auto) 62.5 % 06/11/19 11:46 Lymph % (Auto) 27.7 % 06/11/19 11:46 [place] % (Auto) 7.3 % 06/11/19 11:46 Eos % (Auto) 1.7 % 06/11/19 11:46 Baso % (Auto) 0.6 % 06/11/19 11:46 Immature Gran # (Auto) 0.01 K/uL (0.00-0.02) 06/11/19 11:46 Neut # (Auto) 2.90 K/uL (1.4-6.5) 06/11/19 11:46 Lymph # (Auto) 1.29 K/uL (1.2-3.4) 06/11/19 11:46 [place] # (Auto) 0.34 K/uL (0.11-0.59) 06/11/19 11:46 Eos # (Auto) 0.08 K/uL (0-0.5) 06/11/19 11:46 Baso # (Auto) 0.03 K/uL (0-0.2) 06/11/19 11:46 PT 10.7 Seconds (9.0-12.0) 06/11/19 11:46 INR 1.0 (0.9-1.1) 06/11/19 11:46 APTT 24.7 Seconds (21.0-31.0) 06/11/19 11:46 PTT Ratio 0.9 06/11/19 11:46 Sodium 144 mmol/L (136-145) 06/11/19 11:46 Potassium 3.5 mmol/L (3.5-5.1) 06/11/19 11:46 Chloride 106 mmol/L (98-107) 06/11/19 11:46 Carbon Dioxide 32 mmol/L (21-32) 06/11/19 11:46 Anion Gap 6.0 (3-11) 06/11/19 11:46 BUN 10 mg/dl (7-18) 06/11/19 11:46 Creatinine 0.88 mg/dl (0.6-1.2) 06/11/19 11:46 Est Cr Clr Drug Dosing 67.5 ml/min 06/11/19 11:46 Est GFR ( Amer) 72.9 06/11/19 11:46 Est GFR (Non-Af Amer) 62.9 06/11/19 11:46 BUN/Creatinine Ratio 11.2 (10-20) 06/11/19 11:46 Glucose 119 mg/dl (70-99) H 06/11/19 11:46 POC Glucose 141 (70-99) H 06/27/19 18:10 Estimat Average Glucose 134 mg/dl 06/11/19 11:46 Hemoglobin A1c 6.3 % (4.5-5.6) H 06/11/19 11:46 Calcium 9.0 mg/dl (8.5-10.1) 06/11/19 11:46 Albumin 3.2 gm/dl (3.4-5.0) L 06/11/19 11:46 Urine Color Yellow 06/11/19 Unknown Urine Appearance Clear (Clear) 06/11/19 Unknown Urine pH 8.0 (4.5-7.5) H 06/11/19 Unknown Ur Specific [place] 1.008 (1.000-1.030) 06/11/19 Unknown Urine Protein Negative (Negative) 06/11/19 Unknown Urine Glucose (UA) Negative (Negative) 06/11/19 Unknown Urine Ketones Negative (Negative) 06/11/19 Unknown Urine Blood Negative (Negative) 06/11/19 Unknown Urine Nitrite Negative (Negative) 06/11/19 Unknown Urine Bilirubin Negative (Negative) 06/11/19 Unknown Urine Urobilinogen Negative (Negative) 06/11/19 Unknown Ur Leukocyte Esterase Trace (Negative) H 06/11/19 Unknown Urine WBC (Auto) 1-5 /hpf (0-5) 06/11/19 Unknown Urine RBC (Auto) 0-4 /hpf (0-4) 06/11/19 Unknown U Hyaline Cast (Auto) 0 /lpf (0-5) 06/11/19 Unknown U Epithel Cells (Auto) 20-30 /lpf (0-5) H 06/11/19 Unknown Urine Bacteria (Auto) Negative (Negative) 06/11/19 Unknown Blood Type A Positive 06/11/19 11:46 Antibody Screen NEGATIVE 06/11/19 11:46 PG Care Time/CCT Total # of Minutes Spent Total Time Spent with Patient: Total time spent is greater than 50% in coordination of care (as documented) at patient's floor/unit and/or counseling patient: (1) Hyperlipidemia Hyperlipidemia type: mixed hyperlipidemia Qualified Code(s): E78.2 - Mixed hyperlipidemia
[2019-06-27] MEDS: ACETAMINOPHEN 500 MG TAB PO SCH (22:36)
[2019-06-27] MEDS: ZOLPIDEM TARTRATE 10 MG TAB PO SCH (22:36)
[2019-06-28] MEDS: CEFAZOLIN 2000MG 2,000 MG/15 ML SYR IV SCH (04:42)
[2019-06-28] MEDS: ACETAMINOPHEN 500 MG TAB PO SCH ×3 (04:42→22:38)
[2019-06-28] MEDS: SODIUM CHLORIDE 0.9% 1000ML 1,000 ML IV SCH ×2 (04:43→05:20)
[2019-06-28 05:44] LABS: Basophils # (auto) 0.01 K/uL (0-0.2); Basophils % (auto) 0.1 %; Hematocrit (blood only) 39.8 % (37-47); Hemoglobin 12.4 g/dL (12.0-16.0); Immature Granulocytes # (auto) 0.03 K/uL (0.00-0.02); Immature Granulocytes % (auto) 0.4 %; Lymphocytes # (auto) 1.17 K/uL (1.2-3.4); Mean Corpuscular Hgb Conc 31.2 g/dL (32-36); Mean Corpuscular Volume 93.4 fL (80-100); Mean Platelet Volume 10.6 fL (7.4-10.4); Monocytes # (auto) 0.15 K/uL (0.11-0.59); Monocytes % (auto) 1.8 %; Neutrophils % (auto) 83.7 %; Platelet Count 223 K/uL (130-400); RDW Coefficient of Variation 13.3 % (11.5-14.5); RDW Standard Deviation 45.4 fL (36.4-46.3); Red Blood Count 4.26 M/uL (4.2-5.4); White Blood Count 8.36 K/uL (4.8-10.8)
[2019-06-28 06:13] LABS: BUN Creatinine Ratio 11.3 (10-20); Calcium 8.6 mg/dl (8.5-10.1); Creatinine Clr Calc Pharmacy 48.3 ml/min; Est GFR (African American) 49.6; Est GFR (Non-African American) 42.8; Potassium 3.8 mmol/L (3.5-5.1)
[2019-06-28] MEDS: OXYCODONE HCL IR 5 MG TAB (IMMEDIATE RELEASE) PO PRN ×3 (06:31→21:54)
--- NOTE | 2019-06-28 07:44 | Anesthesiology Progress Note ---
Date of Service June 28, 2019 Anesthesia Post Procedure Vital Signs Vital Signs: Temp Pulse Pulse Pulse Pulse Resp BP 06/28/19 04:43 36.7 C 96 H 16 06/28/19 00:41 36.6 C 96 H 15 06/27/19 21:03 92 H 16 06/27/19 20:11 88 16 06/27/19 19:35 36.6 C 80 20 06/27/19 19:05 36.6 C 78 17 06/27/19 18:57 36.8 C 06/27/19 18:56 76 20 06/27/19 18:55 78 14 142/94 H 06/27/19 18:51 77 15 06/27/19 18:50 78 15 148/87 H 06/27/19 18:46 75 15 06/27/19 18:45 78 14 141/83 H 06/27/19 18:41 74 19 06/27/19 18:40 79 14 146/82 H 06/27/19 18:37 14 06/27/19 18:36 79 18 06/27/19 18:35 78 20 06/27/19 18:31 79 15 06/27/19 18:30 80 16 138/85 06/27/19 18:26 84 19 06/27/19 18:25 83 18 06/27/19 18:21 83 19 06/27/19 18:20 82 18 146/78 H 06/27/19 18:16 82 21 06/27/19 18:15 77 24 142/87 H 06/27/19 18:11 81 15 06/27/19 18:10 79 17 132/73 06/27/19 18:09 83 20 130/76 06/27/19 12:34 37.0 C 83 18 06/27/19 08:09 36.3 C L 83 12 BP Pulse Ox 06/28/19 04:43 116/76 92 06/28/19 00:41 116/72 91 06/27/19 21:03 116/72 99 06/27/19 20:11 129/67 97 06/27/19 19:35 142/82 H 98 06/27/19 19:05 135/78 96 06/27/19 18:57 97 06/27/19 18:56 97 06/27/19 18:55 97 06/27/19 18:51 97 06/27/19 18:50 97 06/27/19 18:46 97 06/27/19 18:45 96 06/27/19 18:41 97 06/27/19 18:40 96 06/27/19 18:37 97 06/27/19 18:36 97 06/27/19 18:35 96 06/27/19 18:31 98 06/27/19 18:30 98 06/27/19 18:26 96 06/27/19 18:25 96 06/27/19 18:21 96 06/27/19 18:20 96 06/27/19 18:16 91 06/27/19 18:15 93 06/27/19 18:11 94 06/27/19 18:10 92 06/27/19 18:09 92 06/27/19 12:34 132/87 92 06/27/19 08:09 130/76 94 Pain Intensity Left Shoulder: Pain Intensity: 0 Notes Mental Status: alert / awake / arousable and participated in evaluation Nausea / Vomiting: adequately controlled Pain: adequately controlled Airway Patency, RR, SpO2: stable & adequate BP & HR: stable & adequate Hydration State: stable & adequate Neuraxial Anesthesia: sensory block is resolving Anesthetic Complications: Pt Satisfied with anesthetic care
--- NOTE | 2019-06-28 07:48 | Orthopedic Progress Note ---
Date of Service June 28, 2019 Assessment & Plan (1) Rotator cuff arthropathy of left shoulder: POD #1, Left Reversed TSA, Biceps Tenodesis. PT/OT D/C planning- To [facility] As per medicine. Subjective POD #1, Doing well. Denies SOB, CP, N/V. Pain controlled well. Physical Exam Physical Exam: Left shoulder dressings c/d/i. Sling in tact. Fingers still numb from nerve block. A&Ox3. Results & Data Vital Signs (Past 12 Hours) Vital Signs Temp Pulse Pulse Pulse Resp BP Pulse Ox 06/28/19 04:43 36.7 C 96 H 16 116/76 92 06/28/19 00:41 36.6 C 96 H 15 116/72 91 06/27/19 21:03 92 H 16 116/72 99 06/27/19 20:11 88 16 129/67 97
[2019-06-28] MEDS: MULTIVITAMIN TAB PO SCH (08:58)
[2019-06-28] MEDS: CHOLECALCIFEROL 1,000 UNITS TAB PO SCH (08:58)
[2019-06-28] MEDS: GABAPENTIN 300 MG CAP PO SCH ×3 (08:59→20:30)
[2019-06-28] MEDS: POTASSIUM CHLORIDE 20 MEQ TABCR PO SCH ×2 (08:59→20:30)
[2019-06-28] MEDS: MAGNESIUM OXIDE 400 MG TAB PO SCH (08:59)
[2019-06-28] MEDS: PANTOprazole 40 MG TAB PO SCH (09:00)
[2019-06-28] MEDS: RIVAROXABAN 10 MG TABLET PO SCH (09:00)
[2019-06-28] MEDS: CALCIUM 600MG + VIT D 400 IU TAB PO SCH (09:00)
[2019-06-28] MEDS: DOCUSATE SODIUM 100 MG CAP PO SCH ×2 (09:00→20:30)
[2019-06-28] MEDS ORDERED: DEXTROSE 50% 50 ML SYRINGE IV PRN (13:11)
[2019-06-28] MEDS ORDERED: GLUCAGON FOR INJ 1 MG VIAL SQ PRN (13:11)
[2019-06-28] MEDS ORDERED: GLUCOSE 10 TABS/TUBE PO PRN (13:11)
[2019-06-28] MEDS ORDERED: GLUCOSE 40% GEL 15 GM TUBE PO PRN (13:11)
[2019-06-28] MEDS ORDERED: CARBOHYDRATES FOR HYPOGLYCEMIA PO PRN (13:11)
--- NOTE | 2019-06-28 13:16 | Hospitalist Progress Note ---
Date of Service June 28, 2019 Assessment & Plan (1) Rotator cuff arthropathy of left shoulder: - S/p left rotator cuff repair on 06/27, POD#1. - Pain management per primary team. - DVT ppx with Xarelto 10 mg daily. - PT/OT evaluation. - Continue Gabapentin 300 mg TID. (2) Prediabetes: - Hgb A1C was 6.3; Blood gluc checks have been elevated - likely related to Decadron dose. - Will order SSI coverage as inpt due to steroid induced hyperglycemia. - Encourage CCD at discharge - met with oil distributor tender regarding lifestyle changes. (3) CKD (chronic kidney disease), stage III: - Renally dose all meds. - Creatinine slightly elevated above baseline -- was 1.21. Will continue to monitor daily. - Holding home HCTZ, can resume pending improvement in renal function. (4) Benign essential hypertension: - Continue home Diltiazem; holding home HCTZ in setting of elevated Cr. (5) Hyperlipidemia: - Continue statin as prescribed. (6) GERD (gastroesophageal reflux disease): - PPI. (7) History of pulmonary embolus (PE): - Patient had a PE in 2010 associated with ovarian CA. - Xarelto 10 mg daily for DVT ppx. (8) Insomnia: - Continue home Ambien. (9) Electrolyte abnormality: - Continue home KCl 20 mEq BID and Mag oxide 400 mg daily. (10) DVT prophylaxis: - Xarelto 10 mg daily. Dispo: Med/surg; will continue to follow, please call with any questions. Supervising Physician Co-Signing Physician Notes LIA Supervision Note: I did not personally see or examine the patient today, but I verified all chaudhary points of LIA Venegas's assessment and plan with the following exceptions/additions: None Subjective Pt. is doing well overall. Denies chest pain, SOB. Is voiding well, denies retention. Is passing gas, no BM yet. Review of Systems Review of Systems: All systems reviewed & are unremarkable except as noted in HPI & below Constitutional: no fever, no chills, no fatigue and no weakness Respiratory: no cough, no dyspnea, no dyspnea on exertion and no wheezing Cardiovascular: no chest pain, no palpitations and no edema Gastrointestinal: + constipation; no abdominal pain, no nausea and no vomiting Genitourinary: no difficulty urinating Musculoskeletal: no back pain and no joint pain Physical Exam Physical Exam: General: Resting comfortably HEENT: NC/AT; PERRLA with EOMI; [place] conjunctiva, MMM. No erythema of posterior pharynx Neck: Supple and nontender Cardiac: RRR Lungs: CTA bilaterally Abdomen: Bowel normoactive X 4; Nontender to palpation Extremities: Warm. No edema present. Dressing in place over left shoulder, intact to sensation over left digits. Neuro: No focal weakness Skin: No rash Results & Data Vital Signs (Past 12 Hours) Vital Signs Temp Pulse Resp BP Pulse Ox 06/28/19 11:20 37.0 C 90 16 108/68 91 06/28/19 07:52 36.5 C 90 18 101/63 91 06/28/19 04:43 36.7 C 96 H 16 116/76 92 Laboratory Results 06/28/19 06/28/19 06/28/19 Range/Units 12:06 04:54 04:54 WBC 8.36 (4.8-10.8) K/uL RBC 4.26 (4.2-5.4) M/uL Hgb 12.4 (12.0-16.0) g/dL Hct 39.8 (37-47) % MCV 93.4 (80-100) fL MCH 29.1 (25-34) pg MCHC 31.2 L (32-36) g/dL RDW Std Deviation 45.4 (36.4-46.3) fL RDW Coeff of Terence 13.3 (11.5-14.5) % Plt Count 223 (130-400) K/uL MPV 10.6 H (7.4-10.4) fL Immature Gran % (Auto) 0.4 % Neut % (Auto) 83.7 % Lymph % (Auto) 14.0 % [place] % (Auto) 1.8 % Eos % (Auto) 0.0 % Baso % (Auto) 0.1 % Immature Gran # (Auto) 0.03 H (0.00-0.02) K/uL Neut # (Auto) 7.00 H (1.4-6.5) K/uL Lymph # (Auto) 1.17 L (1.2-3.4) K/uL [place] # (Auto) 0.15 (0.11-0.59) K/uL Eos # (Auto) 0.00 (0-0.5) K/uL Baso # (Auto) 0.01 (0-0.2) K/uL Sodium 142 (136-145) mmol/L Potassium 3.8 (3.5-5.1) mmol/L Chloride 102 (98-107) mmol/L Carbon Dioxide 33 H (21-32) mmol/L Anion Gap 7.0 (3-11) BUN 14 (7-18) mg/dl Creatinine 1.21 H (0.6-1.2) mg/dl Est Cr Clr Drug Dosing 48.3 ml/min Est GFR ( Amer) 49.6 Est GFR (Non-Af Amer) 42.8 BUN/Creatinine Ratio 11.3 (10-20) Glucose 177 H (70-99) mg/dl POC Glucose 167 H (70-99) Calcium 8.6 (8.5-10.1) mg/dl 06/27/19 Range/Units 18:10 WBC (4.8-10.8) K/uL RBC (4.2-5.4) M/uL Hgb (12.0-16.0) g/dL Hct (37-47) % MCV (80-100) fL MCH (25-34) pg MCHC (32-36) g/dL RDW Std Deviation (36.4-46.3) fL RDW Coeff of Terence (11.5-14.5) % Plt Count (130-400) K/uL MPV (7.4-10.4) fL Immature Gran % (Auto) % Neut % (Auto) % Lymph % (Auto) % [place] % (Auto) % Eos % (Auto) % Baso % (Auto) % Immature Gran # (Auto) (0.00-0.02) K/uL Neut # (Auto) (1.4-6.5) K/uL Lymph # (Auto) (1.2-3.4) K/uL [place] # (Auto) (0.11-0.59) K/uL Eos # (Auto) (0-0.5) K/uL Baso # (Auto) (0-0.2) K/uL Sodium (136-145) mmol/L Potassium (3.5-5.1) mmol/L Chloride (98-107) mmol/L Carbon Dioxide (21-32) mmol/L Anion Gap (3-11) BUN (7-18) mg/dl Creatinine (0.6-1.2) mg/dl Est Cr Clr Drug Dosing ml/min Est GFR ( Amer) Est GFR (Non-Af Amer) BUN/Creatinine Ratio (10-20) Glucose (70-99) mg/dl POC Glucose 141 H (70-99) Calcium (8.5-10.1) mg/dl PG Care Time/CCT Total # of Minutes Spent Total Time Spent with Patient: Total time spent is greater than 50% in coordination of care (as documented) at patient's floor/unit and/or counseling patient: (1) Hyperlipidemia Hyperlipidemia type: mixed hyperlipidemia Qualified Code(s): E78.2 - Mixed hyperlipidemia
[2019-06-28] MEDS: INSULIN ASPART 100 UNITS/ML 3 ML PEN SC SCH ×2 (18:08→20:50)
[2019-06-28] MEDS: ATORVASTATIN 40 MG TAB PO SCH (20:30)
[2019-06-28] MEDS: SENNA 8.6 MG TAB PO SCH (20:30)
[2019-06-28] MEDS: ZOLPIDEM TARTRATE 10 MG TAB PO SCH (22:48)
[2019-06-29] MEDS: ACETAMINOPHEN 500 MG TAB PO SCH ×3 (05:54→21:27)
[2019-06-29 06:03] LABS: Hematocrit (blood only) 34.9 % (37-47); Hemoglobin 11.1 g/dL (12.0-16.0); Mean Corpuscular Hgb Conc 31.8 g/dL (32-36); Mean Corpuscular Volume 92.6 fL (80-100); Platelet Count 214 K/uL (130-400); RDW Coefficient of Variation 13.4 % (11.5-14.5); Red Blood Count 3.77 M/uL (4.2-5.4); White Blood Count 9.83 K/uL (4.8-10.8)
[2019-06-29 06:32] LABS: BUN Creatinine Ratio 18.5 (10-20); Calcium 8.7 mg/dl (8.5-10.1); Creatinine Clr Calc Pharmacy 58.5 ml/min; Est GFR (African American) 62.5; Est GFR (Non-African American) 53.9; Potassium 4.2 mmol/L (3.5-5.1)
[2019-06-29] MEDS: PANTOprazole 40 MG TAB PO SCH (08:20)
[2019-06-29] MEDS: MULTIVITAMIN TAB PO SCH (08:20)
[2019-06-29] MEDS: GABAPENTIN 300 MG CAP PO SCH ×3 (08:20→21:20)
[2019-06-29] MEDS: INSULIN ASPART 100 UNITS/ML 3 ML PEN SC SCH ×4 (08:20→21:29)
[2019-06-29] MEDS: CHOLECALCIFEROL 1,000 UNITS TAB PO SCH (08:21)
[2019-06-29] MEDS: CALCIUM 600MG + VIT D 400 IU TAB PO SCH (08:21)
[2019-06-29] MEDS: MAGNESIUM OXIDE 400 MG TAB PO SCH (08:21)
[2019-06-29] MEDS: DOCUSATE SODIUM 100 MG CAP PO SCH ×2 (08:21→21:20)
[2019-06-29] MEDS: RIVAROXABAN 10 MG TABLET PO SCH (08:21)
[2019-06-29] MEDS: POTASSIUM CHLORIDE 20 MEQ TABCR PO SCH (08:21)
--- NOTE | 2019-06-29 08:24 | Orthopedic Progress Note ---
Date of Service June 29, 2019 Assessment & Plan (1) Rotator cuff arthropathy of left shoulder: POD #2, Left Reversed TSA, Biceps Tenodesis. PT/OT D/C planning- To [facility] tomorrow Xarelto Continue gabapentin As per medicine. Supervising Physician Co-Signing Physician Notes Patient seen and examined this morning. I agree with LIA Mcdonald's note as above. She is 2 days out from her left reverse total shoulder arthroplasty and doing fairly well. Plan for discharge tomorrow to assisted. Subjective POD #2, Doing well. Denies SOB, CP, N/V. Pain controlled well progressing therapy. Physical Exam Physical Exam: digits mobile, NVI. Calves soft, non tender. Dressing in place. arm in sling Results & Data Vital Signs (Past 12 Hours) Vital Signs Temp Pulse Resp BP Pulse Ox 06/29/19 06:16 36.8 C 105 H 18 106/67 90 06/28/19 23:31 36.7 C 78 18 111/68 92
--- NOTE | 2019-06-29 14:24 | Hospitalist Progress Note ---
Date of Service June 29, 2019 Assessment & Plan (1) Rotator cuff arthropathy of left shoulder: - S/p left rotator cuff repair on 06/27, POD#2. - Pain management per primary team. - DVT ppx with Xarelto 10 mg daily. - PT/OT evaluation - discharge on 06/30. - Continue Gabapentin 300 mg TID. (2) Prediabetes: - Hgb A1C was 6.3; Blood gluc checks have been elevated - likely related to Decadron dose. - SSI coverage as inpt due to steroid induced hyperglycemia. - Encourage CCD at discharge - met with motor vehicle emissions inspector regarding lifestyle changes. (3) CKD (chronic kidney disease), stage III: - Renally dose all meds. - Creatinine is at baseline. - Can resume HCTZ at discharge. (4) Benign essential hypertension: - Continue home Diltiazem; holding home HCTZ, can resume at discharge. (5) Hyperlipidemia: - Continue statin as prescribed. (6) GERD (gastroesophageal reflux disease): - PPI. (7) History of pulmonary embolus (PE): - Patient had a PE in 2010 associated with ovarian CA. - Xarelto 10 mg daily for DVT ppx. (8) Insomnia: - Continue home Ambien. (9) Electrolyte abnormality: - Continue home KCl 20 mEq BID and Mag oxide 400 mg daily. (10) DVT prophylaxis: - Xarelto 10 mg daily. Dispo: Med/surg; will sign off, please call with any questions. Supervising Physician Co-Signing Physician Notes PA Supervision Note: I did not personally see or examine the patient today, but I verified all chaudhary points of LIA Venegas's assessment and plan with the following exceptions/additions: None Subjective Pt. is doing well. Denies chest pain, SOB, urinary retention, constipation. Review of Systems Review of Systems: All systems reviewed & are unremarkable except as noted in HPI & below Constitutional: no fever, no chills, no fatigue and no weakness Respiratory: no cough, no dyspnea, no dyspnea on exertion and no wheezing Cardiovascular: no chest pain, no palpitations and no edema Gastrointestinal: no abdominal pain, no nausea, no vomiting and no constipation Genitourinary: no difficulty urinating Musculoskeletal: no back pain and no joint pain Integumentary: no non-healing lesions Physical Exam Physical Exam: General: Resting comfortably HEENT: NC/AT; PERRLA with EOMI; [place] conjunctiva, MMM. No erythema of posterior pharynx Neck: Supple and nontender Cardiac: RRR Lungs: CTA bilaterally Abdomen: Bowel normoactive X 4; Nontender to palpation Extremities: Warm. No edema present. Dressing in place over left shoulder. Neuro: No focal weakness Skin: No rash Results & Data Vital Signs (Past 12 Hours) Vital Signs Temp Pulse Resp BP Pulse Ox 06/29/19 06:16 36.8 C 105 H 18 106/67 90 Laboratory Results 06/29/19 06/29/19 06/29/19 Range/Units 12:09 06:41 05:22 WBC (4.8-10.8) K/uL RBC (4.2-5.4) M/uL Hgb (12.0-16.0) g/dL Hct (37-47) % MCV (80-100) fL MCH (25-34) pg MCHC (32-36) g/dL RDW Std Deviation (36.4-46.3) fL RDW Coeff of Terence (11.5-14.5) % Plt Count (130-400) K/uL MPV (7.4-10.4) fL Sodium 141 (136-145) mmol/L Potassium 4.2 (3.5-5.1) mmol/L Chloride 103 (98-107) mmol/L Carbon Dioxide 33 H (21-32) mmol/L Anion Gap 5.0 (3-11) BUN 19 H (7-18) mg/dl Creatinine 1.00 (0.6-1.2) mg/dl Est Cr Clr Drug Dosing 58.5 ml/min Est GFR ( Amer) 62.5 Est GFR (Non-Af Amer) 53.9 BUN/Creatinine Ratio 18.5 (10-20) Glucose 154 H (70-99) mg/dl POC Glucose 139 H 153 H (70-99) Calcium 8.7 (8.5-10.1) mg/dl 06/29/19 06/28/19 06/28/19 Range/Units 05:22 20:44 17:20 WBC 9.83 (4.8-10.8) K/uL RBC 3.77 L (4.2-5.4) M/uL Hgb 11.1 L (12.0-16.0) g/dL Hct 34.9 L (37-47) % MCV 92.6 (80-100) fL MCH 29.4 (25-34) pg MCHC 31.8 L (32-36) g/dL RDW Std Deviation 45.0 (36.4-46.3) fL RDW Coeff of Terence 13.4 (11.5-14.5) % Plt Count 214 (130-400) K/uL MPV 11.0 H (7.4-10.4) fL Sodium (136-145) mmol/L Potassium (3.5-5.1) mmol/L Chloride (98-107) mmol/L Carbon Dioxide (21-32) mmol/L Anion Gap (3-11) BUN (7-18) mg/dl Creatinine (0.6-1.2) mg/dl Est Cr Clr Drug Dosing ml/min Est GFR ( Amer) Est GFR (Non-Af Amer) BUN/Creatinine Ratio (10-20) Glucose (70-99) mg/dl POC Glucose 173 H 159 H (70-99) Calcium (8.5-10.1) mg/dl PG Care Time/CCT Total # of Minutes Spent Total Time Spent with Patient: Total time spent is greater than 50% in coordination of care (as documented) at patient's floor/unit and/or counseling patient: (1) Hyperlipidemia Hyperlipidemia type: mixed hyperlipidemia Qualified Code(s): E78.2 - Mixed hyperlipidemia
[2019-06-29] MEDS ORDERED: dilTIAZem HCL 30 MG TAB PO ONE (16:33)
[2019-06-29] MEDS ORDERED: RIVAROXABAN 10 MG TABLET PO ONE (16:40)
[2019-06-29] MEDS: ATORVASTATIN 40 MG TAB PO SCH (21:19)
[2019-06-29] MEDS: ZOLPIDEM TARTRATE 10 MG TAB PO SCH (21:23)
[2019-06-29] MEDS: SENNA 8.6 MG TAB PO SCH (21:26)
[2019-06-30] MEDS: ACETAMINOPHEN 500 MG TAB PO SCH ×3 (05:33→21:57)
[2019-06-30 06:57] LABS: Hematocrit (blood only) 35.8 % (37-47); Hemoglobin 11.2 g/dL (12.0-16.0); Mean Corpuscular Hgb Conc 31.3 g/dL (32-36); Mean Corpuscular Volume 92.7 fL (80-100); Mean Platelet Volume 10.6 fL (7.4-10.4); Platelet Count 210 K/uL (130-400); RDW Coefficient of Variation 13.8 % (11.5-14.5); RDW Standard Deviation 46.2 fL (36.4-46.3); Red Blood Count 3.86 M/uL (4.2-5.4)
[2019-06-30 07:32] LABS: BUN Creatinine Ratio 21.3 (10-20); Calcium 8.7 mg/dl (8.5-10.1); Creatinine Clr Calc Pharmacy 62.2 ml/min; Est GFR (African American) 64.8; Est GFR (Non-African American) 55.9; Magnesium 1.6 mg/dl (1.8-2.4); Potassium 3.7 mmol/L (3.5-5.1)
[2019-06-30] MEDS ORDERED: POTASSIUM CHLORIDE 20 MEQ TABCR PO ONE (08:09)
--- NOTE | 2019-06-30 08:58 | Orthopedic Progress Note ---
Date of Service June 30, 2019 Assessment & Plan (1) Rotator cuff arthropathy of left shoulder: POD #3, Left Reversed TSA, Biceps Tenodesis. PT/OT D/C planning- To [facility] when stable per medicine Xarelto Continue gabapentin As per medicine. Supervising Physician Co-Signing Physician Notes Patient was seen and examined today. I agree with LIA Mcdonald's note above. She continues to do very well with her left shoulder. She was transferred down to the monitored cardiac floor due to atrial fibrillation with rapid ventricular response. She did not know that she had any problem, and continues to feel fine. She is unaware of previous history of atrial fibrillation. Disposition per medicine regarding the A. fib. Subjective POD #3, Doing well. Denies SOB, CP, N/V. Pain controlled well progressing therapy She notes that she was not aware she was having any irregularities yesterday, continues to feel good today. Physical Exam Physical Exam: fingers mobile, NVI. Calves soft, non tender. Dressing in place. doing exercises while in room Results & Data Vital Signs (Past 12 Hours) Vital Signs Temp Pulse Resp BP Pulse Ox 06/30/19 07:07 37.3 C 88 19 130/76 93 06/30/19 03:31 36.7 C 82 18 122/75 92 06/29/19 23:39 36.7 C 81 18 119/74 91
[2019-06-30] MEDS: MAGNESIUM SULFATE / D5W 1 GM/100 ML BAG IV SCH ×2 (09:29→11:08)
[2019-06-30] MEDS: CALCIUM 600MG + VIT D 400 IU TAB PO SCH (09:30)
[2019-06-30] MEDS: dilTIAZem HCL 300 MG CAPCR PO SCH (09:30)
[2019-06-30] MEDS: DOCUSATE SODIUM 100 MG CAP PO SCH ×2 (09:31→23:21)
[2019-06-30] MEDS: MAGNESIUM OXIDE 400 MG TAB PO SCH (09:32)
[2019-06-30] MEDS: MULTIVITAMIN TAB PO SCH (09:33)
[2019-06-30] MEDS: GABAPENTIN 300 MG CAP PO SCH ×3 (09:33→22:04)
[2019-06-30] MEDS: PANTOprazole 40 MG TAB PO SCH (09:33)
[2019-06-30] MEDS: CHOLECALCIFEROL 1,000 UNITS TAB PO SCH (09:34)
[2019-06-30] MEDS: RIVAROXABAN 20 MG TAB PO SCH (09:36)
[2019-06-30] MEDS: INSULIN ASPART 100 UNITS/ML 3 ML PEN SC SCH ×4 (09:39→22:07)
--- NOTE | 2019-06-30 11:41 | Hospitalist Progress Note ---
Date of Service June 30, 2019 Assessment & Plan (1) Rotator cuff arthropathy of left shoulder: - S/p left rotator cuff repair on 06/27, POD#3. - Pain management per primary team. - DVT ppx with Xarelto -- increased to 20 mg daily in setting of A. fib. - PT/OT evaluation - discharge to [facility]. - Continue Gabapentin 300 mg TID. (2) Paroxysmal atrial fibrillation: - A. fib with RVR documented on EKG 06/29/19; no previous history of A. fib. - Upgraded to tele; converted back to NSR around 8 pm last evening following additional dose of Dilt 30 mg PO. - Increase home Diltiazem to 300 mg daily. - Will increase Xarelto to 20 mg PO daily. - Echo with normal LV function, severely limited views due to body habitus, posible septal hypokinesis in some views - Will need to follow up with cardiology as outpatient -- nurse navigator consult was placed. (3) Prediabetes: - Hgb A1C was 6.3; Blood gluc checks elevated - likely related to Decadron dose. - SSI coverage due to steroid induced hyperglycemia. - Encourage CCD at discharge - met with ham rolling machine operator regarding lifestyle changes. (4) CKD (chronic kidney disease), stage III: - Renally dose all meds. - Creatinine is at baseline. - Can resume HCTZ at discharge. (5) Benign essential hypertension: - Continue home Diltiazem - increased to 300 mg daily in setting of paroxysmal A. fib. - Holding home HCTZ - can resume at discharge. (6) Hyperlipidemia: - Continue statin as prescribed. (7) GERD (gastroesophageal reflux disease): - PPI. (8) History of pulmonary embolus (PE): - Patient had a PE in 2010 associated with ovarian CA. - Xarelto - increase to 20 mg daily in setting of paroxysmal A. fib. (9) Insomnia: - Continue home Ambien. (10) Electrolyte abnormality: - Continue home Mag oxide 400 mg daily. - Holding home KCl -- thiazide diuretic is currently on hold. - Mag sulfate 2 gm IV and K 20 mEq PO ordered to maintain K>4 and Mag >2. (11) DVT prophylaxis: - Xarelto 20 mg daily. Dispo: Echo is pending; discharge to [facility] on 07/01/19. Recommend in creasing home Diltiazem to 300 mg daily and Xarelto to 20 mg daily on med rec at discharge. Supervising Physician Co-Signing Physician Notes PA Supervision Note: I did not personally see or examine the patient today, but I verified all chaudhary points of LIA Venegas's assessment and plan with the following excep tions/additions: Ok to transfer to Med/Surgery floor with q4 hour vital checks Subjective Pt. is doing well overall. She converted back to NSR last evening around 8 pm. Denies chest pain, SOB, lightheadedness, N/V, palpitations. Review of Systems Review of Systems: All systems reviewed & are unremarkable except as noted in HPI & below Constitutional: no fever, no chills, no fatigue, no weakness and no anorexia Respiratory: no cough, no dyspnea, no dyspnea on exertion and no wheezing Cardiovascular: no chest pain, no palpitations, no lightheadedness and no edema Gastrointestinal: no abdominal pain, no nausea, no vomiting, no constipation and no diarrhea/loose stools Genitourinary: no dysuria and no difficulty urinating Musculoskeletal: no back pain and no joint pain Integumentary: no non-healing lesions Physical Exam Physical Exam: General: Resting comfortably HEENT: NC/AT; PERRLA with EOMI; [place] conjunctiva, MMM. No erythema of posterior pharynx Neck: Supple and nontender Cardiac: RRR Lungs: CTA bilaterally Abdomen: Bowel normoactive X 4; Nontender to palpation Extremities: Warm. No edema present. Dressing in place over left shoulder. Neuro: No focal weakness Skin: No rash Results & Data Vital Signs (Past 12 Hours) Vital Signs Temp Pulse Resp BP Pulse Ox 06/30/19 07:07 37.3 C 88 19 130/76 93 06/30/19 03:31 36.7 C 82 18 122/75 92 06/29/19 23:39 36.7 C 81 18 119/74 91 Laboratory Results 06/30/19 06/30/19 06/30/19 Range/Units 08:05 06:25 06:25 WBC 8.80 (4.8-10.8) K/uL RBC 3.86 L (4.2-5.4) M/uL Hgb 11.2 L (12.0-16.0) g/dL Hct 35.8 L (37-47) % MCV 92.7 (80-100) fL MCH 29.0 (25-34) pg MCHC 31.3 L (32-36) g/dL RDW Std Deviation 46.2 (36.4-46.3) fL RDW Coeff of Terence 13.8 (11.5-14.5) % Plt Count 210 (130-400) K/uL MPV 10.6 H (7.4-10.4) fL Sodium 143 (136-145) mmol/L Potassium 3.7 (3.5-5.1) mmol/L Chloride 106 (98-107) mmol/L Carbon Dioxide 30 (21-32) mmol/L Anion Gap 7.0 (3-11) BUN 21 H (7-18) mg/dl Creatinine 0.97 (0.6-1.2) mg/dl Est Cr Clr Drug Dosing 62.2 ml/min Est GFR ( Amer) 64.8 Est GFR (Non-Af Amer) 55.9 BUN/Creatinine Ratio 21.3 H (10-20) Glucose 123 H (70-99) mg/dl POC Glucose 126 H (70-99) Calcium 8.7 (8.5-10.1) mg/dl Magnesium 1.6 L (1.8-2.4) mg/dl 06/29/19 06/29/19 06/29/19 Range/Units 20:41 17:26 12:09 WBC (4.8-10.8) K/uL RBC (4.2-5.4) M/uL Hgb (12.0-16.0) g/dL Hct (37-47) % MCV (80-100) fL MCH (25-34) pg MCHC (32-36) g/dL RDW Std Deviation (36.4-46.3) fL RDW Coeff of Terence (11.5-14.5) % Plt Count (130-400) K/uL MPV (7.4-10.4) fL Sodium (136-145) mmol/L Potassium (3.5-5.1) mmol/L Chloride (98-107) mmol/L Carbon Dioxide (21-32) mmol/L Anion Gap (3-11) BUN (7-18) mg/dl Creatinine (0.6-1.2) mg/dl Est Cr Clr Drug Dosing ml/min Est GFR ( Amer) Est GFR (Non-Af Amer) BUN/Creatinine Ratio (10-20) Glucose (70-99) mg/dl POC Glucose 148 H 125 H 139 H (70-99) Calcium (8.5-10.1) mg/dl Magnesium (1.8-2.4) mg/dl 06/29/19 Range/Units 05:22 WBC (4.8-10.8) K/uL RBC (4.2-5.4) M/uL Hgb (12.0-16.0) g/dL Hct (37-47) % MCV (80-100) fL MCH (25-34) pg MCHC (32-36) g/dL RDW Std Deviation (36.4-46.3) fL RDW Coeff of Terence (11.5-14.5) % Plt Count (130-400) K/uL MPV (7.4-10.4) fL Sodium (136-145) mmol/L Potassium (3.5-5.1) mmol/L Chloride (98-107) mmol/L Carbon Dioxide (21-32) mmol/L Anion Gap (3-11) BUN (7-18) mg/dl Creatinine (0.6-1.2) mg/dl Est Cr Clr Drug Dosing ml/min Est GFR ( Amer) Est GFR (Non-Af Amer) BUN/Creatinine Ratio (10-20) Glucose (70-99) mg/dl POC Glucose (70-99) Calcium (8.5-10.1) mg/dl Magnesium 2.0 (1.8-2.4) mg/dl PG Care Time/CCT Total # of Minutes Spent Total Time Spent with Patient: Total time spent is greater than 50% in coordination of care (as documented) at patient's floor/unit and/or counseling patient: (1) Hyperlipidemia Hyperlipidemia type: mixed hyperlipidemia Qualified Code(s): E78.2 - Mixed hyperlipidemia
[2019-06-30] MEDS: ZOLPIDEM TARTRATE 10 MG TAB PO SCH (21:58)
[2019-06-30] MEDS: ATORVASTATIN 40 MG TAB PO SCH (22:04)
[2019-06-30] MEDS: SENNA 8.6 MG TAB PO SCH (22:05)
[2019-06-30] MEDS: OXYCODONE HCL IR 5 MG TAB (IMMEDIATE RELEASE) PO PRN (23:24)
[2019-07-01] MEDS: ACETAMINOPHEN 500 MG TAB PO SCH ×2 (05:40→13:25)
[2019-07-01 07:16] LABS: BUN Creatinine Ratio 19.2 (10-20); Calcium 8.4 mg/dl (8.5-10.1); Creatinine Clr Calc Pharmacy 62.9 ml/min; Est GFR (African American) 65.7; Est GFR (Non-African American) 56.6; Magnesium 1.7 mg/dl (1.8-2.4); Potassium 3.9 mmol/L (3.5-5.1)
[2019-07-01] MEDS: CALCIUM 600MG + VIT D 400 IU TAB PO SCH (09:00)
[2019-07-01] MEDS: MAGNESIUM OXIDE 400 MG TAB PO SCH (09:01)
[2019-07-01] MEDS: PANTOprazole 40 MG TAB PO SCH (09:01)
[2019-07-01] MEDS: CHOLECALCIFEROL 1,000 UNITS TAB PO SCH (09:01)
[2019-07-01] MEDS: RIVAROXABAN 20 MG TAB PO SCH (09:01)
[2019-07-01] MEDS: dilTIAZem HCL 300 MG CAPCR PO SCH (09:01)
[2019-07-01] MEDS: GABAPENTIN 300 MG CAP PO SCH ×2 (09:01→13:18)
[2019-07-01] MEDS: MULTIVITAMIN TAB PO SCH (09:01)
[2019-07-01] MEDS: INSULIN ASPART 100 UNITS/ML 3 ML PEN SC SCH ×2 (09:04→13:19)
[2019-07-01] MEDS: DOCUSATE SODIUM 100 MG CAP PO SCH (09:07)
--- NOTE | 2019-07-01 09:39 | Orthopedic Progress Note ---
Date of Service July 01, 2019 Assessment & Plan (1) Rotator cuff arthropathy of left shoulder: Postop day 4 status post left reverse total shoulder arthroplasty by Dr. Kahn Continue limited PT for the left upper extremity. Ambulation as tolerated. Xarelto increased to 20 mg due to PAF Plan to discharge to [facility] today if okay with medicine service. Subjective Postop day 4 status post left reverse total shoulder arthroplasty. PAF over the weekend. Patient was transferred out of the unit over the weekend due to PAF. [facility] was [facility]. Currently she is sitting at the bedside. She states she has some discomfort in her left shoulder but otherwise is doing well. No new complaints. Denies chest pain, shortness of breath ,lightheadedness. Physical Exam Physical Exam: Tegaderm and 4 x 4 dressing intact. No erythema around the dressing itself. No overt swelling of the left shoulder at this time. She has good range of motion of her left elbow and wrist without discomfort. Mild swelling in her fingers of the left hand. She does have good range of motion of all 5 fingers at this time and sensation is intact. 2 seconds. Results & Data Vital Signs (Past 12 Hours) Vital Signs Temp Pulse Resp BP Pulse Ox 07/01/19 07:51 36.5 C 97 H 18 126/87 93 06/30/19 23:25 36.7 C 90 16 142/85 H 92
--- NOTE | 2019-07-01 13:50 | Hospitalist Progress Note ---
Date of Service July 01, 2019 Assessment & Plan (1) Rotator cuff arthropathy of left shoulder: - S/p left rotator cuff repair on 06/27, POD#3. - Pain management per primary team. - DVT ppx with Xarelto -- increased to 20 mg daily in setting of A. fib. - PT/OT evaluation - discharge to [facility]. - Continue Gabapentin 300 mg TID. (2) Paroxysmal atrial fibrillation: - A. fib with RVR documented on EKG 06/29/19; no previous history of A. fib. - Upgraded to tele; converted back to NSR around 8 pm last evening following additional dose of Dilt 30 mg PO. - Agree with increase in home Diltiazem to 300 mg daily. - Increase Xarelto to 20 mg PO daily. - Echo with normal LV function, severely limited views due to body habitus, posible septal hypokinesis in some views - Will need to follow up with cardiology as outpatient -- nurse navigator consult was placed. (3) Prediabetes: - Hgb A1C was 6.3; Blood gluc checks elevated - likely related to Decadron dose. - SSI coverage due to steroid induced hyperglycemia. - Encourage CCD at discharge - met with tobacco educator regarding lifestyle changes. (4) CKD (chronic kidney disease), stage III: - Renally dose all meds. - Creatinine is at baseline. - Can resume HCTZ at discharge. (5) Benign essential hypertension: - Continue home Diltiazem - increased to 300 mg daily in setting of paroxysmal A. fib. - Holding home HCTZ - can resume at discharge. (6) Hyperlipidemia: - Continue statin as prescribed. (7) GERD (gastroesophageal reflux disease): - PPI. (8) History of pulmonary embolus (PE): - Patient had a PE in 2010 associated with ovarian CA. - Xarelto - increase to 20 mg daily in setting of paroxysmal A. fib. (9) Insomnia: - Continue home Ambien. (10) Electrolyte abnormality: - Continue home Mag oxide 400 mg daily. - Holding home KCl -- thiazide diuretic is currently on hold. - Mag sulfate 2 gm IV and K 20 mEq PO ordered to maintain K>4 and Mag >2. (11) DVT prophylaxis: - Xarelto 20 mg daily. Dispo: Echo is pending; discharge to [facility] on 07/01/19. Recommend increasing home Diltiazem to 300 mg daily and Xarelto to 20 mg daily on med rec at discharge. Subjective Post op day 5 status post left reverse total shoulder arthroplasty. pAF over the weekend, irregularly irregular again today. Asymptomatic. Feels she is ready to go to rehabilitation No new complaints. Denies chest pain, shortness of breath, dizziness, orthopnea, PND, claudication. Review of Systems Review of Systems: All systems reviewed & are unremarkable except as noted in HPI & below Physical Exam Constitutional: well developed and + morbidly obese; not in distress Results & Data Vital Signs (Past 12 Hours) Vital Signs Temp Pulse Resp BP Pulse Ox 07/01/19 07:51 97.7 F 97 H 18 126/87 93 PG Care Time/CCT Total # of Minutes Spent Total Time Spent with Patient: Total time spent is greater than 50% in coordination of care (as documented) at patient's floor/unit and/or counseling patient: (1) Hyperlipidemia Hyperlipidemia type: mixed hyperlipidemia Qualified Code(s): E78.2 - Mixed hyperlipidemia
== END 2019-07-01 15:40 | DRG 483 ==
LOC: ASU 11:37 → 3E 18:15 → 2N 06-29 16:23 → 3W 06-30 15:39

== ENCOUNTER 2020-04-22 08:26 | Inpatient (IN) ==
--- NOTE | 2020-04-09 22:17 | PAT Medication Instructions ---
Medication Instructions Date of Service April 09, 2020 Home Medications Medication Instructions Recorded calcium carbonate 500 mg (1,250 1 tab PO DAILY #90 tab 04/07/19 mg)-vitamin D3 200 unit tablet cholecalciferol (vitamin D3) 50 2,000 unit PO QAM #90 tab 04/07/19 mcg (2,000 unit) tablet ketoconazole 2 % topical cream 1 applic TOPICAL BID PRN #60 gm 04/07/19 potassium chloride 20 mEq 20 meq PO BID #180 tab 04/07/19 tablet,extended release docusate sodium 100 mg PO BID #60 cap 06/30/19 multivitamin [Daily-Nelda] 1 tab PO QAM #30 tab 06/30/19 atorvastatin 80 mg tablet 80 mg PO HS #90 tab 09/25/19 magnesium oxide 400 mg PO BID #180 tab 11/12/19 triamcinolone acetonide 0.1 % 1 appln TOP BID PRN #30 gm 12/02/19 topical cream gabapentin 300 mg capsule 300 mg PO TID #270 cap 12/12/19 diltiazem HCl 300 mg 300 mg PO QAM #90 cap 12/31/19 capsule,extended release 24 hr hydroxyzine HCl 25 mg tablet 50 mg PO HS PRN #28 tab 02/04/20 hydrochlorothiazide 25 mg tablet 12.5 mg PO QAM #45 tab 02/13/20 tramadol 50 mg tablet 100 mg PO Q12H PRN #120 tab 03/12/20 calcium carbonate 500 mg (1,250 mg)-vitamin D3 200 unit tablet 1 tab PO DAILY cholecalciferol (vitamin D3) 50 mcg (2,000 unit) tablet 2,000 unit PO QAM ketoconazole 2 % topical cream 1 applic TOPICAL BID PRN potassium chloride 20 mEq tablet,extended release 20 meq PO BID docusate sodium 100 mg PO BID multivitamin [Daily-Nelda] 1 tab PO QAM acetaminophen 500 mg tablet 1,000 mg PO Q8H atorvastatin 80 mg tablet 80 mg PO HS magnesium oxide 400 mg PO BID triamcinolone acetonide 0.1 % topical cream 1 appln TOP BID PRN gabapentin 300 mg capsule 300 mg PO TID diltiazem HCl 300 mg capsule,extended release 24 hr 300 mg PO QAM hydroxyzine HCl 25 mg tablet 50 mg PO HS PRN hydrochlorothiazide 25 mg tablet 12.5 mg PO QAM tramadol 50 mg tablet 100 mg PO Q12H PRN meloxicam 15 mg PO QAM omeprazole 40 mg PO QPM rivaroxaban [Xarelto] 20 mg PO QAM sennosides 17.2 mg PO BID PRN ASK your surgeon for instructions rivaroxaban [Xarelto] 20 mg PO QAM -- must be held for at least 3 full days (last dose 04/18) before surgery for spinal anesthesia STOP taking 24 hours before surgery ketoconazole 2 % topical cream 1 applic TOPICAL BID PRN triamcinolone acetonide 0.1 % topical cream 1 appln TOP BID PRN DO NOT take the morning of surgery calcium carbonate 500 mg (1,250 mg)-vitamin D3 200 unit tablet 1 tab PO DAILY cholecalciferol (vitamin D3) 50 mcg (2,000 unit) tablet 2,000 unit PO QAM potassium chloride 20 mEq tablet,extended release 20 meq PO BID docusate sodium 100 mg PO BID multivitamin [Daily-Nelda] 1 tab PO QAM magnesium oxide 400 mg PO BID hydrochlorothiazide 25 mg tablet 12.5 mg PO QAM sennosides 17.2 mg PO BID PRN Take morning of surgery With a small sip of water, OTHERWISE NOTHING TO EAT OR DRINK AFTER MIDNIGHT: acetaminophen 500 mg tablet 1,000 mg PO Q8H (if needed, may be taken up to four hours before surgery) gabapentin 300 mg capsule 300 mg PO TID diltiazem HCl 300 mg capsule,extended release 24 hr 300 mg PO QAM tramadol 50 mg tablet 100 mg PO Q12H PRN (if needed, may be taken up to four hours before surgery) omeprazole 40 mg PO QPM Take evening before surgery potassium chloride 20 mEq tablet,extended release 20 meq PO BID docusate sodium 100 mg PO BID acetaminophen 500 mg tablet 1,000 mg PO Q8H (if needed) atorvastatin 80 mg tablet 80 mg PO HS magnesium oxide 400 mg PO BID gabapentin 300 mg capsule 300 mg PO TID hydroxyzine HCl 25 mg tablet 50 mg PO HS PRN (if needed) tramadol 50 mg tablet 100 mg PO Q12H PRN (if needed) omeprazole 40 mg PO QPM sennosides 17.2 mg PO BID PRN (if needed) Other Notes If you have any questions please call us at [phone] or [phone] or [phone] or [phone]
--- NOTE | 2020-04-10 14:34 | Anesthesiology Consultation ---
Date of Service April 10, 2020 Assessment & Plan (1) Encounter for pre-operative examination: COVID Status: As of 04/10 assessment, patient denies travel to endemic area, known exposure/sick contacts, or symptoms of COVID19. Patient instructed to follow strict social distancing guidelines, wear a mask in public and avoid travel for 14 days prior to surgery. Preoperative COVID19 testing to be completed prior to surgery. Patient made aware to self-isolate as much as possible between COVID testing and surgery. Cardiologgy Clearance 04/10/20 = "Patient has been very limited in her activities over the past 6 months, but does relate to me that she pushed a cart of groceries through the store without limiting symptoms within the past 3-4 weeks. Patient has not experienced any angina pectoris or anginal equivalent symptoms, overt signs or symptoms of heart failure, nor has she had any recurrence of atrial fibrillation to her knowledge. Therefore, based on her normal LV systolic function, the fact that she can tolerate atrial tachycardia without any anginal symptoms, and she was able to achieve a 4-5 MET workload in recent weeks -- patient is an acceptable cardiac risk for her upcoming surgery. Patient was advised to take her usual doses of Cardizem CD 300 mg, Mag-Ox 400 mg, and Potassium Chloride 20 mEq on the morning of surgery with sips of water. Patient may hold Xarelto x 3 days leading up to her surgery. There is no need for further cardiac workup at this point." Chart Review Chart Review: Acceptable Risk for Surgery and Patient seen in Pre Admission Testing Teaching & Discussion Instructed NPO after midnight before surgery, except medications with 15 cc of water. Medication instructions provided according to the PAT guidelines. History Surgery Operation Date: 04/22/20 08:50 Proposed Procedures p Left Total Knee Arthroplasty - Stefan Kahn MD Height/Weight Height: 5 ft 4 in Weight: 118.6 kg Allergies Allergy/AdvReac Type Severity Reaction Status Date / Time estrogens, conjugated Allergy Unknown Unknown Verified 04/09/20 10:05 reaction medroxyprogesterone Allergy Unknown Unknown Verified 04/09/20 10:05 reaction nickel Allergy Rash Verified 04/09/20 10:05 Medications Home Medications Medication Instructions Recorded Confirmed Last Taken calcium carbonate 500 mg (1,250 1 tab PO DAILY #90 tab 04/07/19 04/10/20 06/26/19 09:00 mg)-vitamin D3 200 unit tablet cholecalciferol (vitamin D3) 50 2,000 unit PO QAM #90 tab 04/07/19 04/10/20 06/26/19 09:00 mcg (2,000 unit) tablet ketoconazole 2 % topical cream 1 applic TOPICAL BID PRN #60 gm 04/07/19 04/09/20 06/25/19 21:00 potassium chloride 20 mEq 20 meq PO BID #180 tab 04/07/19 04/10/20 06/26/19 21:00 tablet,extended release docusate sodium 100 mg PO BID #60 cap 06/30/19 04/10/20 Unknown multivitamin [Daily-Nelda] 1 tab PO QAM #30 tab 06/30/19 04/10/20 Unknown acetaminophen 500 mg tablet 1,000 mg PO Q8H tab 07/09/19 04/10/20 Unknown atorvastatin 80 mg tablet 80 mg PO HS #90 tab 09/25/19 04/10/20 Unknown magnesium oxide 400 mg PO BID #180 tab 11/12/19 04/10/20 Unknown triamcinolone acetonide 0.1 % 1 appln TOP BID PRN #30 gm 12/02/19 04/09/20 Unknown topical cream gabapentin 300 mg capsule 300 mg PO TID #270 cap 12/12/19 04/10/20 Unknown diltiazem HCl 300 mg 300 mg PO QAM #90 cap 12/31/19 04/10/20 Unknown capsule,extended release 24 hr hydroxyzine HCl 25 mg tablet 50 mg PO HS PRN #28 tab 02/04/20 04/10/20 Unknown hydrochlorothiazide 25 mg tablet 12.5 mg PO QAM #45 tab 02/13/20 04/10/20 Unknown tramadol 50 mg tablet 100 mg PO Q12H PRN #120 tab 03/12/20 04/10/20 Unknown meloxicam 15 mg PO QAM 04/09/20 04/10/20 Unknown omeprazole 40 mg PO QPM 04/09/20 04/10/20 Unknown rivaroxaban [Xarelto] 20 mg PO QAM 04/09/20 04/10/20 Unknown sennosides 17.2 mg PO BID PRN 04/09/20 04/09/20 Unknown Past Medical History Medical History Benign essential hypertension (Chronic) Borderline diabetes mellitus GERD (gastroesophageal reflux disease) History of migraine History of ovarian cancer 2011 - s/p LLOYD BSO + chemo Hyperlipidemia Morbid obesity On anticoagulant therapy Osteoarthritis Paroxysmal atrial fibrillation post op shoulder replacement 06/2019 [facility] Pulmonary embolism 2011 - treated w/ blood thinners - r/t cancer Sleep apnea Uses CPAP Exercise / Class Metabolic Activity III < 4 Walking/Shop/Light housework (Uses walker or cane at home, denies CP or SOB with ambulation on flat surface) Past Surgical History Surgical History History of arthroscopy of shoulder BL History of bilateral cataract extraction History of colonoscopy History of left shoulder replacement 06/2019 [facility] History of right knee joint replacement History of tooth extraction History of total abdominal hysterectomy and bilateral salpingo-oophorectomy History of tubal ligation History of vascular access device Removed Past Anesthesia History No Hx of Anesthesia Complications (other than agitation if mask on her face on emergence) and No Family Hx of Anesthesia Complications History of PONV No Hx of PONV and No Hx of Motion Sickness Social History Smoking Status: Never smoker Do You Dip or Chew Tobacco: No Hx Alcohol Use: Yes Alcohol type: wine and hard liquor alcohol intake frequency: a few times a week Hx Substance Use: No substance use type: does not use Review of Systems Pt denies any recent chest pain, shortness of breath, palpitations, cough, fever or URI. Physical Exam Vital Signs BP: 130/72 P: 70bpm SPO2: 95% RA T: 98.2 F R: 16 Constitutional + morbidly obese ENTN Mouth: + dentures (full upper, partial lower) and + small oral opening; no chipped teeth and no loose teeth Thyromental Distance: > or= 3.5 Finger Breadths (3.5) Mallampati Class: III Neck + short neck and + limited neck extension (very) Respiratory normal respiratory effort Auscultation: lungs clear to auscultation bilaterally Cardiovascular Rate/Rhythm: regular rate; + abnormal rhythm (irreg irreg) Heart Sounds: no murmur Extremities: + edema (B/L 1+) Testing Laboratory Results 04/10/20 14:52 04/10/20 14:52 PT 15.1 Seconds (9.0-12.0) H 04/10/20 14:52 INR 1.5 (0.9-1.1) H 04/10/20 14:52 APTT 38.8 Seconds (21.0-31.0) H 04/10/20 14:52 Urine Color Dark Yellow 04/10/20 14:52 Urine Appearance Clear (Clear) 04/10/20 14:52 Urine pH 8.0 (4.5-7.5) H 04/10/20 14:52 Ur Specific [place] 1.015 (1.000-1.030) 04/10/20 14:52 Urine Protein Negative (Negative) 04/10/20 14:52 Urine Glucose (UA) Negative (Negative) 04/10/20 14:52 Urine Ketones Negative (Negative) 04/10/20 14:52 Urine Nitrite Negative (Negative) 04/10/20 14:52 Ur Leukocyte Esterase 1+ (Negative) H 04/10/20 14:52 Urine WBC (Auto) 10-30 /hpf (0-5) H 04/10/20 14:52 Urine RBC (Auto) 0-4 /hpf (0-4) 04/10/20 14:52 U Hyaline Cast (Auto) 1-5 /lpf (0-5) 04/10/20 14:52 U Epithel Cells (Auto) 10-20 /lpf (0-5) H 04/10/20 14:52 Urine Bacteria (Auto) Negative (Negative) 04/10/20 14:52 Blood Type A Positive 04/10/20 14:52 Antibody Screen NEGATIVE 04/10/20 14:52 04/10/20 14:52 Urine Culture - Final Urine,Clean Catch More than three types of organisms present, all low counts mixed probable skin walter. No further identifications or sensitivities to follow. Electrocardiogram Date: 04/10/20 -- NSR with a PAC then a brief run of atrial tachycardia. -- Otherwise normal tracing. Chest X-Ray Date: 04/10/20 IMPRESSION: 1. Mild cardiomegaly 2. No evidence of acute parenchymal consolidation 3. No failure 4. 6 mm opacity at the right lateral lung base likely representing a vascular summation Echocardiogram Date: 06/30/19 Image quality was severely limited due to patient body habitus and positioning. LV systolic function is normal. There did appear to be some septal hypokinesis in some views. Otherwise normal wall motion. Valves not well visualized.
--- NOTE | 2020-04-10 15:26 | XRay Report ---
XR chest Pre-admission PA/Lat CLINICAL HISTORY: Preoperative chest COMPARISON STUDY: 06/11/2019 FINDINGS: The heart remains enlarged with ill-definition of the left heart border likely secondary to a prominent pericardial fat pad. There is no failure. There is no lobar consolidation. There are no pleural effusions. There is a 5 mm density at the right lateral lung base, likely representing a vasc ular summation[. A 3-6 month follow-up chest x-ray is recommended. IMPRESSION: 1. Mild cardiomegaly 2. No evidence of acute parenchymal consolidation 3. No failure 4. 6 mm opacity at the right lateral lung base likely representing a vascular summation ACT 112: Negative or not required by law. Electronically signed by: Gabo Farah M.D. 04/10/2020 3:24 PM
[2020-04-10 16:14] LABS: Basophils # (auto) 0.04 K/uL (0-0.2); Basophils % (auto) 0.7 %; Eosinophils # (auto) 0.18 K/uL (0-0.5); Eosinophils % (auto) 3.2 %; Hematocrit (blood only) 36.1 % (37-47); Hemoglobin 11.6 g/dL (12.0-16.0); Lymphocytes # (auto) 2.02 K/uL (1.2-3.4); Lymphocytes % (auto) 35.6 %; Mean Corpuscular Hemoglobin 28.9 pg (25-34); Mean Corpuscular Hgb Conc 32.1 g/dL (32-36); Mean Corpuscular Volume 89.8 fL (80-100); Mean Platelet Volume 10.3 fL (7.4-10.4); Monocytes # (auto) 0.33 K/uL (0.11-0.59); Monocytes % (auto) 5.8 %; Neutrophils % (auto) 54.7 %; Platelet Count 247 K/uL (130-400); RDW Coefficient of Variation 13.5 % (11.5-14.5); RDW Standard Deviation 44.2 fL (36.4-46.3); Red Blood Count 4.02 M/uL (4.2-5.4); White Blood Count 5.67 K/uL (4.8-10.8)
[2020-04-10 16:22] LABS: Calcium 8.8 mg/dl (8.5-10.1); Est GFR (African American) 55.9; Est GFR (Non-African American) 48.2; Potassium 4.4 mmol/L (3.5-5.1)
[2020-04-10 16:28] LABS: Appearance Urine Clear (Clear); Bacteria Urine Automated Negative (Negative); Bilirubin Urine Negative (Negative); Blood Urine Negative (Negative); Color Urine Dark Yellow; Glucose Urine UA Negative (Negative); INR 1.5 (0.9-1.1); Ketones Urine Negative (Negative); Leukocyte Esterase Urine 1+ (Negative); Nitrite Urine Negative (Negative); Partial Thromboplastin Ratio 1.4; Partial Thromboplastin Time 38.8 Seconds (21.0-31.0); Protein Urine Negative (Negative); Prothrombin Time 15.1 Seconds (9.0-12.0); RBC Urine Automated 0-4 /hpf (0-4); Specific Gravity Urine 1.015 (1.000-1.030); Urobilinogen Urine Negative (Negative)
--- NOTE | 2020-04-21 20:16 | History and Physical Report ---
DATE OF ADMISSION: 04/22/2020 CHIEF COMPLAINT: Chronic left knee pain and instability. HISTORY OF PRESENT ILLNESS: This is a 79-year-old female patient of Dr. Kahn'ivana complaining of chronic left knee pain, longstanding, now progressively getting worse. The patient has failed conservative treatment including intraarticular injections, home exercise program and the use of a cane and wheelchair. The patient has been diagnosed with end-stage osteoarthritis per clinical and radiographic exams. The patient wished to proceed with a left total knee arthroplasty. PAST MEDICAL HISTORY: Hypertension, hypercholesterolemia, pulmonary embolism, sleep apnea with the use of CPAP, osteoarthritis, neck problems, back problems, spine problems, sciatica, obesity and ovarian cancer. SOCIAL HISTORY: Nonsmoker, nondrinker. FAMILY HISTORY: Noncontributory. REVIEW OF SYSTEMS: Chronic left knee pain and instability. Otherwise, denies any shortness of breath, chest pain, nausea, vomiting or any other joint complaints. MEDICATIONS: 1. Hydrochlorothiazide 25 mg daily. 2. Xarelto 20 mg daily. 3. Meloxicam 15 mg daily. 4. Diltiazem 300 mg daily. 5. Tramadol 50 mg twice daily. 6. Gabapentin 300 mg twice daily. 7. Hydroxyzine 25 mg daily. 8. Trazodone 50 mg 2 tablets daily. 9. Atorvastatin 8 mg daily. 10. Omeprazole 40 mg daily. 11. She also takes glucosamine, vitamin D3, potassium, calcium, multivitamin, Tylenol and magnesium as needed. ALLERGIES: No known drug allergies. PHYSICAL EXAMINATION: GENERAL: Well-developed, well-nourished 79-year-old female in no acute distress. She is alert and oriented x3 and pleasant. HEENT: Normocephalic, atraumatic. Extraocular motions are intact. Pupils are equal and reactive to light. HEART: Regular rate and rhythm, no murmurs. LUNGS: Clear. ABDOMEN: Soft, nontender, bowel sounds present. EXTREMITIES: Left knee with joint line tenderness. Limited range of motion. Positive effusion, 4/5 strength. Neurologically and neurovascularly intact in the left lower extremity. DIAGNOSES: Left knee end-stage osteoarthritis, hypertension, hypercholesterolemia, history of pulmonary embolism, history of sleep apnea with use of CPAP, osteoarthritis, spine problems, neck problems, sciatica, obesity, ovarian cancer. PLAN: The patient was advised of her diagnosis. Indications, risks, benefits, postop course have all been reviewed. The patient wished to proceed with a left total knee arthroplasty. Necessary consent forms, preoperative testing and clearances will be obtained. JESSICA
[~2020-04-22 08:26] MED LIST changes: +BUPIVACAINE 0.25% 30 ML VIAL ONE; +BUPIVACAINE 0.5 % 5 MG/1 ML PF 10ML VIAL ONE; +CEFAZOLIN 2000MG 2,000 MG/15 ML SYR IV SCH; -CEFAZOLIN 3000MG 72.5 ML IV SCH; -LR 15ML/HR IV SCH; +LR 500ML BOLUS, THEN 15ML/HR IV SCH; -ROPIVACAINE 0.5% 5 MG/ML 30 ML VIAL ONE; +ROPIVACAINE 0.5% HCL/PF 150 MG, BUPIVACAINE 0.5% MPF 30 ML, EPINEPHrine 30MG/30ML (OR U... INSTIL SCH
[2020-04-22] MEDS ORDERED: MIDAZOLAM HCL 1 MG/ML 2ML VIAL ONE (08:36)
[2020-04-22] MEDS ORDERED: PROPOFOL IV EMULSION 10 MG/ML 20 ML VIAL IV ONE ×2 (08:36→12:13)
[2020-04-22] MEDS ORDERED: LIDOCAINE HCL 2% 2 ML VIAL/AMP(20MG/ML) INFIL ONE (08:36)
[2020-04-22] MEDS ORDERED: fentaNYL citrate 100 MCG/2 ML VIAL ONE ×2 (08:36→11:46)
--- NOTE | 2020-04-22 08:57 | History & Physical Bridge Note ---
Date of Service April 22, 2020 History & Physical Bridge Note I have examined the patient, reviewed the History & Physical and in the interval since the performance of the History & Physical I have noted the following changes of clinical significance: no changes noted
[2020-04-22] MEDS ORDERED: ORTHO JOINT ANESTHETIC ONE (09:30)
[2020-04-22] MEDS ORDERED: BACITRACIN INJ 50,000 UNIT VIAL ONE (09:31)
[2020-04-22] MEDS ORDERED: ePHEDrine sulfate 50 MG/ML AMP IV PRN (11:23)
[2020-04-22] MEDS ORDERED: ONDANSETRON INJ 2 MG/ML 2 ML VIAL IV PRN ×2 (11:23→14:16)
[2020-04-22] MEDS ORDERED: ATROPINE SULFATE 0.1 MG/ML 10ML SYR IV PRN (11:23)
--- NOTE | 2020-04-22 12:40 | Operative Report ---
Post Operative Report Pre & Post Diagnosis Operation Date: 04/22/20 10:40 Pre-Op Diagnosis: LEFT KNEE OSTEOARTHRITIS morbid obesity BMI 46.2 Post-Op Diagnosis: LEFT KNEE OSTEOARTHRITIS morbid obesity BMI 46.2 I identified the patient and participated in the time-out.: Yes Procedure Operation Date: 04/22/20 10:40 Actual Procedures p Left Total Knee Arthroplasty(Left) increased difficulty BMI 46.2- Stefan Kahn MD Surgeon Setfan Kahn MD Preparation Room Worker LIA Moran Estimated Blood Loss 10 Findings Consistent with Post-Op Diagnosis Specimens Bone cuts Drains 2 Hemovac Anesthesia Type MAC Spinal Regional Complications none Disposition Accompanied Patient To Recovery: No Disposition: Recovery Room Indications 79-year-old female with severe left knee osteoarthritis. She is failed conservative management. Radiographs demonstrate severe tricompartmental OA varus knee some bone loss medially laxity lateral collateral ligament with varus thrust. Patient has reported nickel allergy but has standard total knee replacement on her right knee and never had a reaction to it. Description of Procedure Patient taken to the operating room the size under spinal MAC regional anesthesia. Patient was placed supine on the operating table. A pneumatic tourniquet was placed about the left obese upper thigh. The left lower extremity was prepped and draped in sterile fashion. Knee exam demonstrated 15 degree flexion contracture with flexion only to 90 degrees lateral collateral ligament laxity varus knee no pseudolaxity medially with tight medial compartment. The leg was elevated exsanguinated with an Esmarch bandage and pneumatic tourniquet was raised to 350 millimeters of mercury. Skin incised sharply in longitudinal fashion. Subcutaneous flaps elevated. Incision was made through the medial retinaculum extending up in the mid third of the quadriceps tendon and down to the medial tibial tubercle. Intra-articular findings demonstrated severe tricompartmental osteoarthritis [id number] in the medial compartment and patellofemoral joint tight medial compartment lax lateral compartment. The Biomet Vanguard titanium total knee arthroplasty system was used. To expose the knee the infrapatellar fat pad was resected. The meniscal remnants and cruciate ligaments were resected. The anterior fat pad over the femur in the area of the anterior flange of the femoral component was resected. Lateral synovial bands release. The femur was exposed. An intramedullary drill hole was made into the canal. A guide pamela was placed. Distal femoral cutting guide was adjusted to resect a 5 degree valgus cut with +2 resection from standard cut distal femur resected. The knee was extended and a subperiosteal peel lateral release was performed around the patella. Patella width was measured and width was reproduced using a freehand cut technique and a 34 x 8 symmetrical patella component. The 3 drill holes were made and the excess lateral facet was beveled off to prevent any impingement. Attention was taken back to the femur which was exposed with retractors and the femoral sizing guide was pinned in position. The drill holes were placed in 3 of external rotation to match epicondylar axis. Femur sized for a 65 PS left component. The 4-in-1 cutting block was placed and then the anterior posterior and chamfer cuts are made. The tibia was then subluxed. The external tibial cutting guide was just to make a perpendicular cut to the long axis of the tibia below the most d eficient bone loss side. A lamina inspector sheet metal parts was used and the flexion extension gaps were balanced. All posterior osteophytes removed. All meniscal remnants were resected. The tibia exposed and the trial tibial component size 67 was externally rotated in line with the tibial tubercle and pinned in position. The punch for stem was used. The notch cutting device was centered appropriately and the femoral notch cut was made. The femoral trial was inserted. Trial tibial inserts were placed and size 14 PS plus gave balanced ligaments through flexion and extension. Patella tracking was assessed. The patella tracked centrally. The trial components were then removed and the orthomix anesthetic cocktail was injected per protocol. The knee was then copiously irrigated with pulsatile lavage antibiotic solution. Final components were then cemented with Simplex cement. Final components were [employer] [employer] titanium left Vanguard closed boxed femoral posterior stabilized component size 65, titanium tibial fin component 67, 14 PS plus poly-with fixation bar and 34 x 8 mm symmetrical polyethylene patella. While the cement cured the Betadine soak was used per protocol. After cement cured further pulsatile lavage irrigation performed and 2 Hemovac drains were brought out laterally. The quadriceps tendon and medial retinaculum were closed with figure of 8 #1 Vicryl sutures. The knee was taken through al range of motion and the repair was secure. Knee motion was 0 through 100. The subcutaneous tissues were closed with 2-0 Vicryl sutures. Skin was closed with Monocryl subcuticular with surgical glue system. Sterile dressings were applied. Patient procedure well. Estrada FITZGERALD was my physician access services assistant who assisted in patient positioning prepping and draping,leg positio víctor ,soft tissue retraction and instrument management and participated in the closing and will participate in postoperative care of the patient. There was increased level difficulty and 30-minute increased length of time for the procedure related to morbid obesity. The patient tolerated the procedure well. I attest to the content of the Intraoperative Record and any orders documented therein. Any exceptions are noted below.
--- NOTE | 2020-04-22 13:48 | XRay Report ---
XR knee LT 1 or 2V routine HISTORY: 79 years-old Female Surgical Post Op left knee total joint arthroplasty COMPARISON: Left knee radiographs 05/24/2011 TECHNIQUE: 2 views of the left knee FINDINGS: Left knee total joint arthroplasty and patella resurfacing. Satisfactory alignment without acute frac ture or opaque foreign body. Expected postsurgical soft tissue swelling and deep tissue air with surg ical drainage catheter. IMPRESSION: Left knee total joint arthroplasty with expected postoperative findings. ACT 112: Negative or not required by law. The above report was generated using voice recognition software. It may contain grammatical, syntax o r spelling errors. Electronically signed by: Dieter Marin M.D. 04/22/2020 1:47 PM
[2020-04-22] MEDS ORDERED: KETOCONAZOLE 2% CR 15 GM TUBE EXT PRN (14:16)
[2020-04-22] MEDS ORDERED: TRAMADOL HCL 50 MG TABLET PO PRN (14:16)
[2020-04-22] MEDS ORDERED: TRIAMCINOLONE ACET 0.1% CR 15 GM TUBE TOP PRN (14:16)
[2020-04-22] MEDS ORDERED: bisacodyL 10 MG SUPP PR PRN (14:16)
[2020-04-22] MEDS ORDERED: MAGNESIUM HYDROXIDE SUSP 30 ML UDC PO PRN (14:16)
[2020-04-22] MEDS ORDERED: SODIUM CHLORIDE 0.9% 1000ML 1,000 ML IV SCH (14:16)
[2020-04-22] MEDS ORDERED: HYDROmorphone INJ 0.5 MG/0.5 ML SYR IV PRN (14:16)
[2020-04-22] MEDS ORDERED: SENNA 8.6 MG TAB PO PRN (14:16)
[2020-04-22] MEDS ORDERED: NALOXONE HCL 0.4 MG/1 ML VIAL/CARP IV PRN (14:16)
[2020-04-22] MEDS ORDERED: PHARMACY GLYCEMIC MGMT CONSULT PRN (14:34)
[2020-04-22] MEDS ORDERED: GLUCOSE 40% GEL 15 GM TUBE PO PRN (14:45)
[2020-04-22] MEDS ORDERED: DEXTROSE 50% 50 ML SYRINGE IV PRN (14:45)
[2020-04-22] MEDS ORDERED: CARBOHYDRATES FOR HYPOGLYCEMIA PO PRN (14:45)
[2020-04-22] MEDS ORDERED: GLUCOSE 10 TABS/TUBE PO PRN (14:45)
[2020-04-22] MEDS ORDERED: GLUCAGON FOR INJ 1 MG VIAL IM PRN (14:45)
--- NOTE | 2020-04-22 14:52 | Pharmacy Report ---
Glycemic Control Consultation - Date of Service April 22, 2020 - Scope Scope: Glycemic Pharmacist consulted for glycemic control and to write orders per [facility] inpatient glycemic control protocol. - Objective Weight: 118.2 kg Accuchecks BSG (last 24hrs): 04/22/20 14:42 POC Glucose 145 H - Recent Pertinent Medications Outpatient Anti-diabetic Regimen: * N/A * A1c = 6.2 % (11/12/19 - Assessment & Plan Assessment & Plan: ASSESSMENT: * NH is a 79 year old female POD #0 s/p left TKA * Received 8 mg PO dexamethasone and intra-articular ortho mix intraoperatively * Postop BSG of 145 mg/dL * Patient is prediabetic and does not take antidiabetic medications at home - will be conservative with Novolog only to start PLAN FOR INPATIENT GLYCEMIC CONTROL: * Basal insulin * Hold * Bolus insulin - hold carb coverage at this time * NovoLog per scale ACHS or Q6hrs while NPO * Goal Range: Low 110 mg/dL - High 150 mg/dL * Correction Factor: 30 mg/dL/unit * Please note that the plan above was derived based on current level of insulin resistance and hospital stress. These recommendations are appropriate for inpatient admission only. Plan of care upon discharge will need to be reassessed to avoid potential outpatient hypo/hyperglycemia. Thank you.
[2020-04-22] MEDS: GABAPENTIN 300 MG CAP PO SCH ×2 (16:06→20:38)
--- NOTE | 2020-04-22 16:59 | Anesthesiology Progress Note ---
Date of Service April 22, 2020 Anesthesia Post Procedure Vital Signs Vital Signs: Temp Pulse Pulse Resp BP Pulse Ox 04/22/20 16:01 36.5 C 79 18 133/73 97 04/22/20 15:04 37.2 C 75 16 141/83 H 99 04/22/20 14:29 36.6 C 70 18 127/78 97 04/22/20 14:00 36.6 C 69 18 131/78 92 04/22/20 13:45 36.4 C L 66 18 135/69 96 04/22/20 13:35 67 18 123/68 95 04/22/20 13:25 73 16 127/71 100 04/22/20 13:15 36.1 C L 72 17 112/61 99 04/22/20 10:02 79 20 132/72 95 04/22/20 09:17 37.2 C 82 18 132/64 95 Pain Intensity Medial Back: Pain Intensity: 8 Transfer of Care Handoff Completed per policy Notes Mental Status: alert / awake / arousable and participated in evaluation Patient Amnestic to Procedure: Yes Nausea / Vomiting: adequately controlled Pain: adequately controlled Airway Patency, RR, SpO2: stable & adequate BP & HR: stable & adequate Hydration State: stable & adequate Neuraxial Anesthesia: was administered and sensory block is resolving Anesthetic Complications: no major complications apparent and Pt Satisfied with anesthetic care
[2020-04-22] MEDS: CEFAZOLIN 2000MG 2,000 MG/15 ML SYR IV SCH (17:06)
[2020-04-22] MEDS: INSULIN ASPART 100 UNITS/ML 3 ML PEN SC SCH ×2 (17:50→20:47)
[2020-04-22] MEDS: DOCUSATE SODIUM 100 MG CAP PO SCH (20:37)
[2020-04-22] MEDS: ATORVASTATIN 40 MG TAB PO SCH (20:37)
[2020-04-22] MEDS: PANTOprazole 40 MG TAB PO SCH (20:38)
[2020-04-22] MEDS: POTASSIUM CHLORIDE 20 MEQ TABCR PO SCH (20:38)
[2020-04-22] MEDS: ACETAMINOPHEN 500 MG TAB PO SCH (20:38)
[2020-04-22] MEDS: MAGNESIUM OXIDE 400 MG TAB PO SCH (20:38)
[2020-04-22] MEDS: SENNA 8.6 MG TAB PO SCH (20:38)
[2020-04-22] MEDS ORDERED: DOCUSATE SODIUM 100 MG CAP PO SCH (21:00)
--- NOTE | 2020-04-22 22:14 | Consultation ---
Date of Consultation April 22, 2020 Assessment & Plan (1) Arthritis of left knee: s/p left TKA tolerated well, no complications check labs in AM pain control DVT proph with Xarelto daily d/c planning per ortho (2) Benign essential hypertension: continue Diltiazem, hold HCTZ until BMP results in AM BP stable (3) History of pulmonary embolus (PE): attributed to ovarian cancer no VTE since 2010 now on Xarelto for afib (4) Paroxysmal atrial fibrillation: occurred with shoulder surgery 2019 follows with Behzad Dubon continue Diltiazem, Xarelto (5) Hyperlipidemia: statin therapy (6) GERD (gastroesophageal reflux disease): PPI (7) CKD (chronic kidney disease), stage III: check BMP in the morning (8) Prediabetes: Novolog SS History of Present Illness Requesting Physician: Dr. Kahn Reason for Consultation: Medical management Attending Physician: Stefan Kahn MD History of Present Illness 79 yo female s/p left TKA, ongoing knee pain for many months, was supposed to have TKA in December but it was cancelled due to COVID 19. Nerve block is wearing off, some mild pain in left knee. No chest pain, no dyspnea, no nausea after surgery. No immediate complications, minimal EBL. Vitals stable on the floor. Reviewed history. She had pulmonary emboli in 2010 when she had ovarian cancer, the clots were thought to be due to the cancer. She had surgery and three rounds of chemotherapy, has been cancer free since that time. She has h/o paroxysmal afib after shoulder surgery in 2019, follows with Behzad FITZGERALD, she takes Xarelto, Diltiazem. She also has history of hypertension. Allergies Allergy/AdvReac Type Severity Reaction Status Date / Time estrogens, conjugated Allergy Unknown Unknown Verified 04/22/20 09:03 reaction medroxyprogesterone Allergy Unknown Unknown Verified 04/22/20 09:03 reaction nickel Allergy Rash Verified 04/22/20 09:03 Home Medications Home Medications Medication Instructions Recorded Confirmed Type calcium carbonate 500 mg (1,250 1 tab PO DAILY #90 tab 04/07/19 04/22/20 Rx mg)-vitamin D3 200 unit tablet cholecalciferol (vitamin D3) 50 2,000 unit PO QAM #90 tab 04/07/19 04/22/20 Rx mcg (2,000 unit) tablet ketoconazole 2 % topical cream 1 applic TOPICAL BID PRN #60 gm 04/07/19 04/22/20 Rx potassium chloride 20 mEq 20 meq PO BID #180 tab 04/07/19 04/22/20 Rx tablet,extended release docusate sodium 100 mg PO BID #60 cap 06/30/19 04/22/20 Rx multivitamin [Daily-Nelda] 1 tab PO QAM #30 tab 06/30/19 04/22/20 Rx acetaminophen 500 mg tablet 1,000 mg PO Q8H tab 07/09/19 04/22/20 History atorvastatin 80 mg tablet 80 mg PO HS #90 tab 09/25/19 04/22/20 Rx magnesium oxide 400 mg PO BID #180 tab 11/12/19 04/22/20 Rx triamcinolone acetonide 0.1 % 1 appln TOP BID PRN #30 gm 12/02/19 04/22/20 Rx topical cream gabapentin 300 mg capsule 300 mg PO TID #270 cap 12/12/19 04/22/20 Rx diltiazem HCl 300 mg 300 mg PO QAM #90 cap 12/31/19 04/22/20 Rx capsule,extended release 24 hr hydroxyzine HCl 25 mg tablet 50 mg PO HS PRN #28 tab 02/04/20 04/22/20 Rx hydrochlorothiazide 25 mg tablet 12.5 mg PO QAM #45 tab 02/13/20 04/22/20 Rx tramadol 50 mg tablet 100 mg PO Q12H PRN #120 tab 03/12/20 04/22/20 Rx meloxicam 15 mg PO QAM 04/09/20 04/22/20 History omeprazole 40 mg PO QPM 04/09/20 04/22/20 History rivaroxaban [Xarelto] 20 mg PO QAM 04/09/20 04/22/20 History sennosides 17.2 mg PO BID PRN 04/09/20 04/22/20 History acetaminophen mg PO 04/22/20 History Patient History Medical History Benign essential hypertension (Chronic) Borderline diabetes mellitus GERD (gastroesophageal reflux disease) History of migraine History of ovarian cancer 2010 - s/p LLOYD BSO + chemo Hyperlipidemia Morbid obesity On anticoagulant therapy Osteoarthritis Paroxysmal atrial fibrillation post op shoulder replacement 06/2019 [facility] Pulmonary embolism 2011 - treated w/ blood thinners - r/t cancer Sleep apnea Uses CPAP Surgical History History of arthroscopy of shoulder BL History of bilateral cataract extraction History of colonoscopy History of left shoulder replacement 06/2019 [facility] History of right knee joint replacement History of tooth extraction History of total abdominal hysterectomy and bilateral salpingo-oophorectomy History of tubal ligation History of vascular access device Removed Family History Grandfather (Paternal) Family history of diabetes mellitus Mother Congestive heart failure Father Multiple organ failure Other Hypertension No family history of adverse response to anesthesia Psoriasis Social History Preferred Language: Indonesian Communication Ability: Effective Spa Experience Coordinator Required: No Beliefs That Will Affect Care: None Current Living Situation: Alone Other Information That Helps Us Care for You: No Feels Safe at Home: Yes Safety Concerns: Feels Safe At This Time Smoking Status: Never smoker Do You Dip or Chew Tobacco: No ; Second Hand Exposure: Yes ( used to smoke) ; Hx Alcohol Use: Yes Alcohol type: wine and hard liquor Hx Substance Use: No Review of Systems Review of Systems: All systems reviewed & are unremarkable except as noted in HPI & below Physical Exam Constitutional: well developed, well nourished and + obese; no acute distress Eyes: PERRL, conjunctivae normal, anicteric sclerae ENMT: external ear and nose normal, oropharynx normal Neck: trachea midline, no thyromegaly Respiratory: normal respiratory effort, lungs clear to auscultation Cardiovascular: RRR, no murmur, no edema Gastrointestinal (Abdomen): normal bowel sounds, soft, nontender, no hepatosplenomegaly Musculoskeletal: Head/Neck/Chest: normocephalic, head atraumatic and neck supple Extremities: strength 5/5 throughout; + extremities abnormal to inspection (left knee swollen, immobilized), no cyanosis, no clubbing and no petechiae Skin: no rashes, warm and dry Neurologic: patellar DTR's 2+ bilat, sensation intact and PERRL, EOMI, accommodation nl, no face palsy, no dysarthria Psychiatric: A+Ox3, euthymic affect Lymphatic: no cervical or axillary lymphadenopathy Results & Data ([facility]) Vital Signs (Past 12 Hours) Vital Signs Temp Pulse Pulse Resp BP Pulse Ox 04/22/20 20:42 36.4 C L 87 16 140/81 95 04/22/20 17:03 36.5 C 81 14 116/72 93 04/22/20 16:01 36.5 C 79 18 133/73 97 04/22/20 15:04 37.2 C 75 16 141/83 H 99 04/22/20 14:29 36.6 C 70 18 127/78 97 04/22/20 14:00 36.6 C 69 18 131/78 92 04/22/20 13:45 36.4 C L 66 18 135/69 96 04/22/20 13:35 67 18 123/68 95 04/22/20 13:25 73 16 127/71 100 04/22/20 13:15 36.1 C L 72 17 112/61 99 Medications Administered Current Inpatient Medications Acetaminophen (Tylenol) 1,000 mg PO Q8 [facility] Stop: 05/22/20 21:59 Last Admin: 04/22/20 20:38 Dose: 1,000 mg Documented by: Atorvastatin Calcium (Lipitor) 80 mg PO HS [facility] Stop: 05/22/20 20:59 Last Admin: 04/22/20 20:37 Dose: 80 mg Documented by: Bisacodyl (Dulcolax) 10 mg [place] DAILY PRN PRN Reason: Constipation Stop: 05/22/20 14:15 Dextrose (Dextrose 50%) 25 - 50 ml IV UD PRN; Protocol PRN Reason: Hypoglycemia Protocol Stop: 05/22/20 14:44 Diltiazem HCl (Cardizem Cd) 300 mg PO QAM [facility] Stop: 05/23/20 08:59 Diphenhydramine HCl (Benadryl Capsule) 25 mg PO Q8H PRN PRN Reason: Itching Stop: 05/22/20 14:15 Docusate Sodium (Colace) 100 mg PO BID [facility] Stop: 05/22/20 20:59 Last Admin: 04/22/20 20:37 Dose: 100 mg Documented by: Gabapentin (Neurontin) 300 mg PO TID [facility] Stop: 05/22/20 14:15 Last Admin: 04/22/20 20:38 Dose: 300 mg Documented by: Glucagon (Glucagen) 1 mg IM UD PRN; Protocol PRN Reason: Hypoglycemia Protocol Stop: 05/22/20 14:44 Glucose (Glucose 40%) 15 - 30 gm PO UD PRN; Protocol PRN Reason: Hypoglycemia Protocol Stop: 05/22/20 14:44 Glucose (Dex4 Glucose) 4 - 8 tabs PO UD PRN; Protocol PRN Reason: Hypoglycemia Protocol Stop: 05/22/20 14:44 Hydrochlorothiazide (Hctz) 12.5 mg PO QAM [facility] Stop: 05/23/20 08:59 Hydromorphone HCl (Dilaudid) 0.5 mg IV Q4H PRN PRN Reason: Pain or Pre PT Stop: 05/06/20 14:15 Hydroxyzine HCl (Vistaril) 50 mg PO HS PRN PRN Reason: itching Stop: 05/22/20 14:15 Cefazolin Sodium (Ancef 2000mg) 2,000 mg in 15 mls @ 3.75 mls/min IV Q8H [facility]; Protocol Stop: 04/23/20 02:03 Last Admin: 04/22/20 17:06 Dose: 3.75 mls/min Documented by: Insulin Aspart (Novolog Flexpen) 0 units SC ACHS [facility] Stop: 05/22/20 16:29 Last Admin: 04/22/20 20:47 Dose: 2 units Documented by: Ketoconazole (Nizoral 2%) 1 appln EXT BID PRN PRN Reason: Rash Stop: 05/02/20 14:15 Magnesium Hydroxide (Milk Of Magnesia) 30 ml PO Q6H PRN PRN Reason: Constipation Stop: 05/22/20 14:15 Magnesium Oxide (Mag-Ox) 400 mg PO BID [facility] Stop: 05/22/20 20:59 Last Admin: 04/22/20 20:38 Dose: 400 mg Documented by: Miscellaneous (Carbohydrates For Hypoglycemia) 15 - 30 gm PO UD PRN PRN Reason: Hypoglycemia Treatment Stop: 05/22/20 14:44 Miscellaneous Information (Consult Glycemic Management Pharmacy) 1 ea N/A UD PRN PRN Reason: Consult Stop: 05/22/20 14:33 Multivitamins (Multivitamin Tab) 1 tab PO QAM [facility] Stop: 05/23/20 08:59 Multivitamins/Minerals (Caltrate Plus) 1 tab PO DAILY [facility] Stop: 05/23/20 08:59 Naloxone HCl (Narcan) 0.1 mg IV Q5M PRN PRN Reason: Oversedation/Resp Depression Stop: 05/22/20 14:15 Ondansetron HCl (Zofran) 4 mg IV Q6H PRN PRN Reason: Nausea And Vomiting Stop: 05/22/20 14:15 Oxycodone HCl (Roxicodone Immediate Rel) 5 - 10 mg PO Q4H PRN PRN Reason: Pain or Pre PT Stop: 05/06/20 14:15 Pantoprazole Sodium (Protonix) 40 mg PO QPM [facility] Stop: 05/22/20 20:59 Last Admin: 04/22/20 20:38 Dose: 40 mg Documented by: Potassium Chloride (Klor-Con M20) 20 meq PO BID [facility] Stop: 05/22/20 20:59 Last Admin: 04/22/20 20:38 Dose: 20 meq Documented by: Rivaroxaban (Xarelto) 20 mg PO QAM [facility] Stop: 05/23/20 12:59 Sennosides (Senokot) 17.2 mg PO BID PRN PRN Reason: Constipation Stop: 05/22/20 14:15 Sennosides (Senokot) 17.2 mg PO HS [facility] Stop: 05/22/20 20:59 Last Admin: 04/22/20 20:38 Dose: 17.2 mg Documented by: Tramadol HCl (Ultram) 50 - 100 mg PO Q4H PRN PRN Reason: Pain & Pre PT Stop: 05/22/20 14:15 Last Admin: 04/22/20 15:15 Dose: 100 mg Documented by: Triamcinolone Acetonide (Kenalog 0.1%) 1 appln TOP BID PRN PRN Reason: rash Stop: 05/22/20 14:15 Vitamin D (Vitamin D3) 2,000 units PO QAM [facility] Stop: 05/23/20 08:59 PG Care Time/CCT Total # of Minutes Spent Total Time Spent with Patient: Total time spent is greater than 50% in coordination of care (as documented) at patient's floor/unit and/or counseling patient: Coding Level of Care Code 20806 Inpt Consult Level 3 Diagnoses Arthritis of left knee M17.12 Benign essential hypertension I10 History of pulmonary embolus (PE) Z86.711 Paroxysmal atrial fibrillation I48.0 Hyperlipidemia E78.2 Hyperlipidemia type: mixed hyperlipidemia GERD (gastroesophageal reflux disease) K21.9 CKD (chronic kidney disease), stage III N18.3 Prediabetes R73.03 (1) Hyperlipidemia Hyperlipidemia type: mixed hyperlipidemia Qualified Code(s): E78.2 - Mixed hyperlipidemia
[2020-04-23] MEDS: CEFAZOLIN 2000MG 2,000 MG/15 ML SYR IV SCH (01:16)
[2020-04-23] MEDS: OXYCODONE HCL IR 5 MG TAB (IMMEDIATE RELEASE) PO PRN ×3 (02:43→21:22)
[2020-04-23] MEDS: ACETAMINOPHEN 500 MG TAB PO SCH ×3 (04:57→21:10)
[2020-04-23 05:46] LABS: Hematocrit (blood only) 26.4 % (37-47); Hemoglobin 8.8 g/dL (12.0-16.0); Mean Corpuscular Hemoglobin 28.9 pg (25-34); Mean Corpuscular Hgb Conc 33.3 g/dL (32-36); Mean Corpuscular Volume 86.8 fL (80-100); Mean Platelet Volume 9.7 fL (7.4-10.4); Platelet Count 217 K/uL (130-400); RDW Coefficient of Variation 13.4 % (11.5-14.5); RDW Standard Deviation 42.6 fL (36.4-46.3); Red Blood Count 3.04 M/uL (4.2-5.4); White Blood Count 10.65 K/uL (4.8-10.8)
[2020-04-23 06:20] LABS: BUN Creatinine Ratio 13.6 (10-20); Calcium 7.9 mg/dl (8.5-10.1); Est GFR (African American) 55.9; Est GFR (Non-African American) 48.2; Potassium 4.3 mmol/L (3.5-5.1)
[2020-04-23 06:31] LABS: Estimated Average Glucose 131 mg/dl; Hemoglobin A1C 6.2 % (4.5-5.6)
--- NOTE | 2020-04-23 07:40 | Anesthesiology Progress Note ---
Date of Service April 23, 2020 Anesthesia Post Procedure Vital Signs Vital Signs: Temp Pulse Pulse Pulse Resp BP Pulse Ox 04/23/20 07:24 36.5 C 94 H 20 114/57 L 91 04/23/20 03:00 36.3 C L 89 20 129/75 94 04/23/20 00:11 88 18 93 04/22/20 23:02 36.6 C 89 20 133/82 94 04/22/20 20:42 36.4 C L 87 16 140/81 95 04/22/20 17:03 36.5 C 81 14 116/72 93 04/22/20 16:01 36.5 C 79 18 133/73 97 04/22/20 15:04 37.2 C 75 16 141/83 H 99 04/22/20 14:29 36.6 C 70 18 127/78 97 04/22/20 14:00 36.6 C 69 18 131/78 92 04/22/20 13:45 36.4 C L 66 18 135/69 96 04/22/20 13:35 67 18 123/68 95 04/22/20 13:25 73 16 127/71 100 04/22/20 13:15 36.1 C L 72 17 112/61 99 04/22/20 10:02 79 20 132/72 95 04/22/20 09:17 37.2 C 82 18 132/64 95 Pain Intensity Medial Back: Pain Intensity: 8 Notes Mental Status: alert / awake / arousable and participated in evaluation Nausea / Vomiting: adequately controlled Pain: adequately controlled Airway Patency, RR, SpO2: stable & adequate BP & HR: stable & adequate Hydration State: stable & adequate
[2020-04-23] MEDS: POTASSIUM CHLORIDE 20 MEQ TABCR PO SCH ×2 (08:29→21:12)
[2020-04-23] MEDS: CHOLECALCIFEROL 1,000 UNITS 25 MCG TAB PO SCH (08:29)
[2020-04-23] MEDS: CALCIUM 600MG + VIT D 400 IU TAB PO SCH (08:29)
[2020-04-23] MEDS: MULTIVITAMIN TAB PO SCH (08:29)
[2020-04-23] MEDS: DOCUSATE SODIUM 100 MG CAP PO SCH ×2 (08:29→21:11)
[2020-04-23] MEDS: MAGNESIUM OXIDE 400 MG TAB PO SCH ×2 (08:30→21:12)
[2020-04-23] MEDS: dilTIAZem HCL 300 MG CAPCR PO SCH (08:30)
[2020-04-23] MEDS: GABAPENTIN 300 MG CAP PO SCH ×3 (08:30→21:11)
[2020-04-23] MEDS: INSULIN ASPART 100 UNITS/ML 3 ML PEN SC SCH ×4 (08:47→21:39)
[2020-04-23] MEDS ORDERED: MULTIVITAMIN TAB PO SCH (09:00)
[2020-04-23] MEDS ORDERED: hydroCHLOROthiazide 25 MG TAB PO SCH (09:00)
--- NOTE | 2020-04-23 10:59 | Orthopedic Progress Note ---
Date of Service April 23, 2020 Assessment & Plan (1) Degenerative arthritis of left knee: POD #1, Left TKA PT/ OT DVT proph- Xarelto D/C planning- [place] when stable. As per medicine Monitor Hgb (8.8), re check in AM, patient asymptomatic lying in bed this am. Admission and Anticipated Discharge Date Admission Date: April 22, 2020 Subjective POD #1, Feeling well. Denies SOB, CP, N/V, dizziness Pain controlled well. Wishes for [place] on D/C. Hgb 8.8 this AM BP at 114/57 Output good. Physical Exam Physical Exam: Left knee dressings c/d/i, no drainage. Toes/ ankle mobile No calf tenderness. N/V+ A&Ox3. Results & Data ([facility]) Vital Signs (Past 12 Hours) Vital Signs Temp Pulse Pulse Resp BP Pulse Ox 04/23/20 07:24 36.5 C 94 H 20 114/57 L 91 04/23/20 03:00 36.3 C L 89 20 129/75 94 04/23/20 00:11 88 18 93 04/22/20 23:02 36.6 C 89 20 133/82 94
[2020-04-23] MEDS: RIVAROXABAN 20 MG TAB PO SCH (12:28)
--- NOTE | 2020-04-23 13:00 | Hospitalist Progress Note ---
Date of Service April 23, 2020 Assessment & Plan (1) Arthritis of left knee: s/p left TKA tolerated well, no complications labs show mild drop in Hb to 8.8, repeat in AM pain controlled DVT proph with Xarelto daily d/c planning per ortho (2) Benign essential hypertension: continue Diltiazem, hold HCTZ until discharge BP stable (3) History of pulmonary embolus (PE): attributed to ovarian cancer no VTE since 2010 now on Xarelto for afib (4) Paroxysmal atrial fibrillation: occurred with shoulder surgery 2019 follows with Kip Ling continue Diltiazem, Xarelto rates controlled (5) Hyperlipidemia: statin therapy (6) GERD (gastroesophageal reflux disease): PPI (7) CKD (chronic kidney disease), stage III: check BMP in the morning -- Cr is stable today (8) Prediabetes: Novolog SS (9) Acute blood loss as cause of postoperative anemia: Hb dropped to 8.8, blood pressure stable will repeat in the morning, no indication for transfusion Admission and Anticipated Discharge Date Admission Date: April 22, 2020 Subjective patient is feeling well, sitting up in her chair, knitting baby hats she is eating well, no dyspnea, no chest pain, no nausea, no fever pain is moderate in the knee but tolerable reviewed labs, Hb dropped to 8.8 but BP stable, WBC normal, Cr normal and electrolytes stable Review of Systems Review of Systems: All systems reviewed & are unremarkable except as noted in Subjective Physical Exam Constitutional: well developed, well nourished and + obese; no acute distress Eyes: PERRL, conjunctivae normal, anicteric sclerae ENMT: external ear and nose normal, oropharynx normal Neck: trachea midline, no thyromegaly Respiratory: normal respiratory effort, lungs clear to auscultation Cardiovascular: RRR, no murmur, no edema Gastrointestinal (Abdomen): normal bowel sounds, soft, nontender, no hepatosplenomegaly Musculoskeletal: Head/Neck/Chest: normocephalic, head atraumatic and neck supple Extremities: strength 5/5 throughout; + extremities abnormal to inspection (left knee swollen, immobilized), no cyanosis, no clubbing and no petechiae Skin: no rashes, warm and dry Neurologic: patellar DTR's 2+ bilat, sensation intact and PERRL, EOMI, accommodation nl, no face palsy, no dysarthria Psychiatric: A+Ox3, euthymic affect Lymphatic: no cervical or axillary lymphadenopathy Results & Data Results & Data ([facility]) Vital Signs (Past 12 Hours) Vital Signs Temp Pulse Resp BP Pulse Ox 04/23/20 07:24 36.5 C 94 H 20 114/57 L 91 04/23/20 03:00 36.3 C L 89 20 129/75 94 Laboratory Results Laboratory Results - last 24 hr 04/22/20 04/22/20 04/22/20 14:42 17:08 20:34 WBC RBC Hgb Hct MCV MCH MCHC RDW Std Deviation RDW Coeff of Terence Plt Count MPV Sodium Potassium Chloride Carbon Dioxide Anion Gap BUN Creatinine Est Cr Clr Drug Dosing Est GFR ( Amer) Est GFR (Non-Af Amer) BUN/Creatinine Ratio Glucose POC Glucose 145 H 178 H 201 H Estimat Average Glucose Hemoglobin A1c Calcium 04/23/20 04/23/20 04/23/20 05:23 05:23 05:23 WBC 10.65 RBC 3.04 L Hgb 8.8 L Hct 26.4 L MCV 86.8 MCH 28.9 MCHC 33.3 RDW Std Deviation 42.6 RDW Coeff of Terence 13.4 Plt Count 217 MPV 9.7 Sodium 142 Potassium 4.3 Chloride 109 H Carbon Dioxide 26 Anion Gap 7.0 BUN 15 Creatinine 1.09 Est Cr Clr Drug Dosing 52.0 Est GFR ( Amer) 55.9 Est GFR (Non-Af Amer) 48.2 BUN/Creatinine Ratio 13.6 Glucose 162 H POC Glucose Estimat Average Glucose 131 Hemoglobin A1c 6.2 H Calcium 7.9 L 04/23/20 04/23/20 07:56 12:07 WBC RBC Hgb Hct MCV MCH MCHC RDW Std Deviation RDW Coeff of Terence Plt Count MPV Sodium Potassium Chloride Carbon Dioxide Anion Gap BUN Creatinine Est Cr Clr Drug Dosing Est GFR ( Amer) Est GFR (Non-Af Amer) BUN/Creatinine Ratio Glucose POC Glucose 164 H 190 H Estimat Average Glucose Hemoglobin A1c Calcium Medications Administered Current Inpatient Medications Acetaminophen (Tylenol) 1,000 mg PO Q8 [facility] Stop: 05/22/20 21:59 Last Admin: 04/23/20 12:28 Dose: 1,000 mg Documented by: Atorvastatin Calcium (Lipitor) 80 mg PO HS [facility] Stop: 05/22/20 20:59 Last Admin: 04/22/20 20:37 Dose: 80 mg Documented by: Bisacodyl (Dulcolax) 10 mg [place] DAILY PRN PRN Reason: Constipation Stop: 05/22/20 14:15 Dextrose (Dextrose 50%) 25 - 50 ml IV UD PRN; Protocol PRN Reason: Hypoglycemia Protocol Stop: 05/22/20 14:44 Diltiazem HCl (Cardizem Cd) 300 mg PO QAM [facility] Stop: 05/23/20 08:59 Last Admin: 04/23/20 08:30 Dose: 300 mg Documented by: Diphenhydramine HCl (Benadryl Capsule) 25 mg PO Q8H PRN PRN Reason: Itching Stop: 05/22/20 14:15 Docusate Sodium (Colace) 100 mg PO BID [facility] Stop: 05/22/20 20:59 Last Admin: 04/23/20 08:29 Dose: 100 mg Documented by: Gabapentin (Neurontin) 300 mg PO TID [facility] Stop: 05/22/20 14:15 Last Admin: 04/23/20 12:28 Dose: 300 mg Documented by: Glucagon (Glucagen) 1 mg IM UD PRN; Protocol PRN Reason: Hypoglycemia Protocol Stop: 05/22/20 14:44 Glucose (Glucose 40%) 15 - 30 gm PO UD PRN; Protocol PRN Reason: Hypoglycemia Protocol Stop: 05/22/20 14:44 Glucose (Dex4 Glucose) 4 - 8 tabs PO UD PRN; Protocol PRN Reason: Hypoglycemia Protocol Stop: 05/22/20 14:44 Hydrochlorothiazide (Hctz) 12.5 mg PO QAM [facility] Stop: 05/23/20 08:59 Hydromorphone HCl (Dilaudid) 0.5 mg IV Q4H PRN PRN Reason: Pain or Pre PT Stop: 05/06/20 14:15 Hydroxyzine HCl (Vistaril) 50 mg PO HS PRN PRN Reason: itching Stop: 05/22/20 14:15 Insulin Aspart (Novolog Flexpen) 0 units SC ACHS [facility] Stop: 05/22/20 16:29 Last Admin: 04/23/20 12:33 Dose: 4 units Documented by: Ketoconazole (Nizoral 2%) 1 appln EXT BID PRN PRN Reason: Rash Stop: 05/02/20 14:15 Magnesium Hydroxide (Milk Of Magnesia) 30 ml PO Q6H PRN PRN Reason: Constipation Stop: 05/22/20 14:15 Magnesium Oxide (Mag-Ox) 400 mg PO BID [facility] Stop: 05/22/20 20:59 Last Admin: 04/23/20 08:30 Dose: 400 mg Documented by: Miscellaneous (Carbohydrates For Hypoglycemia) 15 - 30 gm PO UD PRN PRN Reason: Hypoglycemia Treatment Stop: 05/22/20 14:44 Miscellaneous Information (Consult Glycemic Management Pharmacy) 1 ea N/A UD PRN PRN Reason: Consult Stop: 05/22/20 14:33 Multivitamins (Multivitamin Tab) 1 tab PO QAM [facility] Stop: 05/23/20 08:59 Last Admin: 04/23/20 08:29 Dose: 1 tab Documented by: Multivitamins/Minerals (Caltrate Plus) 1 tab PO DAILY [facility] Stop: 05/23/20 08:59 Last Admin: 04/23/20 08:29 Dose: 1 tab Documented by: Naloxone HCl (Narcan) 0.1 mg IV Q5M PRN PRN Reason: Oversedation/Resp Depression Stop: 05/22/20 14:15 Ondansetron HCl (Zofran) 4 mg IV Q6H PRN PRN Reason: Nausea And Vomiting Stop: 05/22/20 14:15 Oxycodone HCl (Roxicodone Immediate Rel) 5 - 10 mg PO Q4H PRN PRN Reason: Pain or Pre PT Stop: 05/06/20 14:15 Last Admin: 04/23/20 11:31 Dose: 10 mg Documented by: Pantoprazole Sodium (Protonix) 40 mg PO QPM [facility] Stop: 05/22/20 20:59 Last Admin: 04/22/20 20:38 Dose: 40 mg Documented by: Potassium Chloride (Klor-Con M20) 20 meq PO BID [facility] Stop: 05/22/20 20:59 Last Admin: 04/23/20 08:29 Dose: 20 meq Documented by: Rivaroxaban (Xarelto) 20 mg PO QAM [facility] Stop: 05/23/20 12:59 Last Admin: 04/23/20 12:28 Dose: 20 mg Documented by: Sennosides (Senokot) 17.2 mg PO BID PRN PRN Reason: Constipation Stop: 05/22/20 14:15 Sennosides (Senokot) 17.2 mg PO HS [facility] Stop: 05/22/20 20:59 Last Admin: 04/22/20 20:38 Dose: 17.2 mg Documented by: Tramadol HCl (Ultram) 50 - 100 mg PO Q4H PRN PRN Reason: Pain & Pre PT Stop: 05/22/20 14:15 Last Admin: 04/22/20 15:15 Dose: 100 mg Documented by: Triamcinolone Acetonide (Kenalog 0.1%) 1 appln TOP BID PRN PRN Reason: rash Stop: 05/22/20 14:15 Vitamin D (Vitamin D3) 2,000 units PO QAM [facility] Stop: 05/23/20 08:59 Last Admin: 04/23/20 08:29 Dose: 2,000 units Documented by: PG Care Time/CCT Total # of Minutes Spent Total Time Spent with Patient: Total time spent is greater than 50% in coordination of care (as documented) at patient's floor/unit and/or counseling patient: Coding Level of Care Code 27920 Subseq Hosp Care Lvl 2 Diagnoses Arthritis of left knee M17.12 Benign essential hypertension I10 History of pulmonary embolus (PE) Z86.711 Paroxysmal atrial fibrillation I48.0 Hyperlipidemia E78.2 Hyperlipidemia type: mixed hyperlipidemia GERD (gastroesophageal reflux disease) K21.9 CKD (chronic kidney disease), stage III N18.3 Prediabetes R73.03 Acute blood loss as cause of postoperative anemia D62 (1) Hyperlipidemia Hyperlipidemia type: mixed hyperlipidemia Qualified Code(s): E78.2 - Mixed hyperlipidemia
[2020-04-23] MEDS: SENNA 8.6 MG TAB PO SCH (21:10)
[2020-04-23] MEDS: ATORVASTATIN 40 MG TAB PO SCH (21:11)
[2020-04-23] MEDS: PANTOprazole 40 MG TAB PO SCH (21:12)
[2020-04-24] MEDS: OXYCODONE HCL IR 5 MG TAB (IMMEDIATE RELEASE) PO PRN ×3 (01:23→18:29)
[2020-04-24] MEDS: ACETAMINOPHEN 500 MG TAB PO SCH ×3 (06:00→21:06)
[2020-04-24 06:05] LABS: Hematocrit (blood only) 23.3 % (37-47); Hemoglobin 7.4 g/dL (12.0-16.0); Mean Corpuscular Hemoglobin 28.2 pg (25-34); Mean Corpuscular Hgb Conc 31.8 g/dL (32-36); Mean Corpuscular Volume 88.9 fL (80-100); Mean Platelet Volume 10.1 fL (7.4-10.4); Platelet Count 217 K/uL (130-400); RDW Coefficient of Variation 13.8 % (11.5-14.5); RDW Standard Deviation 44.2 fL (36.4-46.3); Red Blood Count 2.62 M/uL (4.2-5.4); White Blood Count 7.42 K/uL (4.8-10.8)
[2020-04-24 06:41] LABS: BUN Creatinine Ratio 17.8 (10-20); Calcium 7.8 mg/dl (8.5-10.1); Est GFR (African American) 57.2; Est GFR (Non-African American) 49.3; Potassium 4.3 mmol/L (3.5-5.1)
--- NOTE | 2020-04-24 07:48 | Orthopedic Progress Note ---
Date of Service April 24, 2020 Assessment & Plan (1) Degenerative arthritis of left knee: POD #2, Left TKA PT/ OT DVT proph- Xarelto D/C planning- [place] when stable. Awaiting COVID testing prior to transfer. As per medicine Acute blood loss anemia-patient has dropped from 8.5-7.4 this morning. Plan to transfuse 1 unit of PRBCs. Admission and Anticipated Discharge Date Admission Date: April 22, 2020 Subjective Postop day 2. Patient currently lying in bed awake and alert. She has no complaints this morning. Pain is controlled. Denies shortness of breath, chest pain, lightheadedness. Dates that she had just been working with nursing staff on her exercises. Physical Exam Physical Exam: Incision has some scant bloody drainage. Mostly at the distal aspect. Wound is well approximated. There is no erythema. She has some mild drainage from the drain sites. Calves are soft and nontender. Neurovascular is intact. Toes are mobile. She has good dorsiflexion and plantarflexion of the left foot. Results & Data ([facility]) Vital Signs (Past 12 Hours) Vital Signs Temp Pulse Pulse Resp BP BP Pulse Ox 04/24/20 07:15 36.6 C 87 18 102/59 L 92 04/24/20 04:22 36.8 C 68 14 101/65 92 04/24/20 02:22 79 18 93 04/23/20 23:41 36.8 C 76 14 99/76 L 96 04/23/20 19:56 36.6 C 83 18 121/59 L 95 Laboratory Results Laboratory Results WBC 7.42 K/uL (4.8-10.8) 04/24/20 05:25 RBC 2.62 M/uL (4.2-5.4) L 04/24/20 05:25 Hgb 7.4 g/dL (12.0-16.0) L 04/24/20 05:25 Hct 23.3 % (37-47) L 04/24/20 05:25 MCV 88.9 fL (80-100) 04/24/20 05:25 MCH 28.2 pg (25-34) 04/24/20 05:25 MCHC 31.8 g/dL (32-36) L 04/24/20 05:25 RDW Std Deviation 44.2 fL (36.4-46.3) 04/24/20 05:25 RDW Coeff of Terence 13.8 % (11.5-14.5) 04/24/20 05:25 Plt Count 217 K/uL (130-400) 04/24/20 05:25 MPV 10.1 fL (7.4-10.4) 04/24/20 05:25 Immature Gran % (Auto) 0.0 % 04/10/20 14:52 Neut % (Auto) 54.7 % 04/10/20 14:52 Lymph % (Auto) 35.6 % 04/10/20 14:52 [place] % (Auto) 5.8 % 04/10/20 14:52 Eos % (Auto) 3.2 % 04/10/20 14:52 Baso % (Auto) 0.7 % 04/10/20 14:52 Neut # (Auto) 3.10 K/uL (1.4-6.5) 04/10/20 14:52 Lymph # (Auto) 2.02 K/uL (1.2-3.4) 04/10/20 14:52 [place] # (Auto) 0.33 K/uL (0.11-0.59) 04/10/20 14:52 Eos # (Auto) 0.18 K/uL (0-0.5) 04/10/20 14:52 Baso # (Auto) 0.04 K/uL (0-0.2) 04/10/20 14:52 Immature Gran # (Auto) 0.00 K/uL (0.00-0.02) 04/10/20 14:52 PT 15.1 Seconds (9.0-12.0) H 04/10/20 14:52 INR 1.5 (0.9-1.1) H 04/10/20 14:52 APTT 38.8 Seconds (21.0-31.0) H 04/10/20 14:52 PTT Ratio 1.4 04/10/20 14:52 Sodium 140 mmol/L (136-145) 04/24/20 05:25 Potassium 4.3 mmol/L (3.5-5.1) 04/24/20 05:25 Chloride 106 mmol/L (98-107) 04/24/20 05:25 Carbon Dioxide 29 mmol/L (21-32) 04/24/20 05:25 Anion Gap 5.0 (3-11) 04/24/20 05:25 BUN 19 mg/dl (7-18) H 04/24/20 05:25 Creatinine 1.07 mg/dl (0.6-1.2) 04/24/20 05:25 Est Cr Clr Drug Dosing 53.0 ml/min 04/24/20 05:25 Est GFR ( Amer) 57.2 04/24/20 05:25 Est GFR (Non-Af Amer) 49.3 04/24/20 05:25 BUN/Creatinine Ratio 17.8 (10-20) 04/24/20 05:25 Glucose 123 mg/dl (70-99) H 04/24/20 05:25 POC Glucose 135 mg/dl (70-99) H 04/23/20 20:35 Estimat Average Glucose 131 mg/dl 04/23/20 05:23 Hemoglobin A1c 6.2 % (4.5-5.6) H 04/23/20 05:23 Calcium 7.8 mg/dl (8.5-10.1) L 04/24/20 05:25 Urine Color Dark Yellow 04/10/20 14:52 Urine Appearance Clear (Clear) 04/10/20 14:52 Urine pH 8.0 (4.5-7.5) H 04/10/20 14:52 Ur Specific [place] 1.015 (1.000-1.030) 04/10/20 14:52 Urine Protein Negative (Negative) 04/10/20 14:52 Urine Glucose (UA) Negative (Negative) 04/10/20 14:52 Urine Ketones Negative (Negative) 04/10/20 14:52 Urine Blood Negative (Negative) 04/10/20 14:52 Urine Nitrite Negative (Negative) 04/10/20 14:52 Urine Bilirubin Negative (Negative) 04/10/20 14:52 Urine Urobilinogen Negative (Negative) 04/10/20 14:52 Ur Leukocyte Esterase 1+ (Negative) H 04/10/20 14:52 Urine WBC (Auto) 10-30 /hpf (0-5) H 04/10/20 14:52 Urine RBC (Auto) 0-4 /hpf (0-4) 04/10/20 14:52 U Hyaline Cast (Auto) 1-5 /lpf (0-5) 04/10/20 14:52 U Epithel Cells (Auto) 10-20 /lpf (0-5) H 04/10/20 14:52 Urine Bacteria (Auto) Negative (Negative) 04/10/20 14:52 Blood Type A Positive 04/10/20 14:52 Antibody Screen NEGATIVE 04/10/20 14:52 Crossmatch See Detail 04/22/20 09:10
[2020-04-24] MEDS ORDERED: SODIUM CHLORIDE 0.9% 250 ML IV PRN (07:49)
[2020-04-24] MEDS: MULTIVITAMIN TAB PO SCH (08:47)
[2020-04-24] MEDS: CHOLECALCIFEROL 1,000 UNITS 25 MCG TAB PO SCH (08:47)
[2020-04-24] MEDS: GABAPENTIN 300 MG CAP PO SCH ×3 (08:48→21:05)
[2020-04-24] MEDS: MAGNESIUM OXIDE 400 MG TAB PO SCH ×2 (08:49→21:04)
[2020-04-24] MEDS: DOCUSATE SODIUM 100 MG CAP PO SCH ×2 (08:49→21:05)
[2020-04-24] MEDS: CALCIUM 600MG + VIT D 400 IU TAB PO SCH (08:50)
[2020-04-24] MEDS: POTASSIUM CHLORIDE 20 MEQ TABCR PO SCH ×2 (08:52→21:04)
[2020-04-24] MEDS: INSULIN ASPART 100 UNITS/ML 3 ML PEN SC SCH ×4 (08:53→21:55)
[2020-04-24] MEDS: RIVAROXABAN 20 MG TAB PO SCH (09:45)
[2020-04-24] MEDS: dilTIAZem HCL 300 MG CAPCR PO SCH (09:45)
--- NOTE | 2020-04-24 13:31 | Pharmacy Report ---
Pharmacy Glycemic Short Note 2 - Date of Service April 24, 2020 - Glycemic Short BSG Results (Last 24 hours): 04/23/20 04/23/20 04/24/20 17:02 20:35 05:25 Glucose 123 H POC Glucose 131 H 135 H 04/24/20 04/24/20 08:05 12:39 Glucose POC Glucose 143 H 109 H ASSESSMENT: 04/24: * Patient received total of 14 units of insulin yesterday, all of which were correctional insulin * Fasting BSG 123 mg/dL - no basal indicated * Lunch time BSG trending down to 109 - will remove CR and just continue with CF PLAN FOR INPATIENT GLYCEMIC CONTROL: * Basal insulin * not indicated * Bolus insulin - hold carb coverage at this time * NovoLog per scale ACHS or Q6hrs while NPO * Goal Range: Low 110 mg/dL - High 150 mg/dL * Correction Factor: 30 mg/dL/unit no carb ratio PLAN FOR DISCHARGE: * A1C of 6.2% on admission indicates pre-diabetes range * Per DM educator note, education provided to patient regarding healthy lifestyle including dietary change
[2020-04-24 15:44] LABS: Hematocrit (blood only) 26.2 % (37-47); Hemoglobin 8.7 g/dL (12.0-16.0)
[2020-04-24] MEDS: PANTOprazole 40 MG TAB PO SCH (21:03)
[2020-04-24] MEDS: SENNA 8.6 MG TAB PO SCH (21:04)
[2020-04-24] MEDS: ATORVASTATIN 40 MG TAB PO SCH (21:05)
--- NOTE | 2020-04-24 22:46 | Hospitalist Progress Note ---
Date of Service April 24, 2020 Assessment & Plan (1) Arthritis of left knee: s/p left TKA tolerated well, no complications labs show mild drop in Hb to 7.4, required 1 PRBC transfusion, improved to 8.7, repeat in PM: 8.0 pain controlled DVT proph with Xarelto daily d/c planning per ortho (2) Benign essential hypertension: continue Diltiazem, hold HCTZ until discharge BP stable (3) History of pulmonary embolus (PE): attributed to ovarian cancer no VTE since 2010 now on Xarelto for afib (4) Paroxysmal atrial fibrillation: occurred with shoulder surgery 2019 follows with Kip Ling continue Diltiazem, Xarelto rates controlled (5) Hyperlipidemia: statin therapy (6) GERD (gastroesophageal reflux disease): PPI (7) CKD (chronic kidney disease), stage III: check BMP in the morning -- Cr is stable today (8) Prediabetes: Novolog SS (9) Acute blood loss as cause of postoperative anemia: Required PRBC on 04/24, blood pressure stable will repeat in the morning, no indication for further transfusion Admission and Anticipated Discharge Date Admission Date: April 22, 2020 Subjective Patient reports feeling well. Has no new complaints at this time. Review of Systems Review of Systems: All systems reviewed & are unremarkable except as noted in HPI & below Physical Exam Physical Exam: Constitutional: well developed, well nourished and + obese; no acute distress Eyes: PERRL, conjunctivae normal, anicteric sclerae ENMT: external ear and nose normal, oropharynx normal Neck: trachea midline, no thyromegaly Respiratory: normal respiratory effort, lungs clear to auscultation Cardiovascular: RRR, no murmur, no edema Gastrointestinal (Abdomen): normal bowel sounds, soft, nontender, no hepatosplenomegaly Musculoskeletal: Head/Neck/Chest: normocephalic, head atraumatic and neck supple Extremities: strength 5/5 throughout; + extremities abnormal to inspection (left knee swollen, immobilized), no cyanosis, no clubbing and no petechiae Skin: no rashes, warm and dry Neurologic: patellar DTR's 2+ bilat, sensation intact and PERRL, EOMI, accommodation nl, no face palsy, no dysarthria Psychiatric: A+Ox3, euthymic affect Lymphatic: no cervical or axillary lymphadenopathy Results & Data Results & Data ([facility]) Vital Signs (Past 12 Hours) Vital Signs Temp Pulse Pulse Resp BP BP Pulse Ox 04/24/20 14:27 36.7 C 73 18 112/67 97 04/24/20 12:59 37.0 C 79 20 99/52 L 95 04/24/20 12:26 36.9 C 78 18 110/53 L 95 04/24/20 12:00 37 C 76 18 112/62 95 04/24/20 11:06 36.4 C L 76 20 103/60 97 PG Care Time/CCT Total # of Minutes Spent Total Time Spent with Patient: Total time spent is greater than 50% in photography coordinator rdination of care (as documented) at patient's floor/unit and/or counseling patient: Coding Level of Care Code 77153 Subseq Hosp Care Lvl 3 Diagnoses Arthritis of left knee M17.12 Benign essential hypertension I10 History of pulmonary embolus (PE) Z86.711 Paroxysmal atrial fibrillation I48.0 Hyperlipidemia E78.2 Hyperlipidemia type: mixed hyperlipidemia GERD (gastroesophageal reflux disease) K21.9 CKD (chronic kidney disease), stage III N18.3 Prediabetes R73.03 Acute blood loss as cause of postoperative anemia D62 Time Spent (min) 35 (1) Hyperlipidemia Hyperlipidemia type: mixed hyperlipidemia Qualified Code(s): E78.2 - Mixed hyperlipidemia
[2020-04-25] MEDS: OXYCODONE HCL IR 5 MG TAB (IMMEDIATE RELEASE) PO PRN ×2 (00:04→08:18)
[2020-04-25] MEDS: ACETAMINOPHEN 500 MG TAB PO SCH ×2 (05:31→13:34)
[2020-04-25 06:29] LABS: Basophils # (auto) 0.02 K/uL (0-0.2); Basophils % (auto) 0.3 %; Eosinophils # (auto) 0.22 K/uL (0-0.5); Eosinophils % (auto) 2.8 %; Hematocrit (blood only) 24.8 % (37-47); Immature Granulocytes # (auto) 0.04 K/uL (0.00-0.02); Immature Granulocytes % (auto) 0.5 %; Lymphocytes # (auto) 2.79 K/uL (1.2-3.4); Lymphocytes % (auto) 35.3 %; Mean Corpuscular Hemoglobin 29.1 pg (25-34); Mean Corpuscular Hgb Conc 32.3 g/dL (32-36); Mean Corpuscular Volume 90.2 fL (80-100); Mean Platelet Volume 9.9 fL (7.4-10.4); Monocytes % (auto) 10.1 %; Neutrophils # (auto) 4.03 K/uL (1.4-6.5); Platelet Count 204 K/uL (130-400); RDW Standard Deviation 45.9 fL (36.4-46.3); Red Blood Count 2.75 M/uL (4.2-5.4)
--- NOTE | 2020-04-25 08:13 | Orthopedic Progress Note ---
Date of Service April 25, 2020 Assessment & Plan (1) Degenerative arthritis of left knee: POD #3, Left TKA PT/ OT DVT proph- Xarelto D/C planning- [place] when stable. Awaiting COVID testing prior to transfer. As per medicine Acute blood loss anemia-patient hgb at 8 this morning improved form 7.4 yesterday, did receive 1 unit PRBC. -Mild continued drainage from incision, incision intact with Prineo/Dermabond. Admission and Anticipated Discharge Date Admission Date: April 22, 2020 Subjective Patient is sitting in bedside chair, no acute distress. She is having a lot of pain but controlled. She received 1 unit PRBC yesterday, hgb improved this morning at 8. She is asymptomatic. No chest pain, sob, dizziness, light headedness, n/v/d. Review of Systems Review of Systems: All systems reviewed & are unremarkable except as noted in HPI & below Physical Exam Physical Exam: Dressing to left knee intact, mild bloody drainage. No calf tenderness. Toes mobile with good dorsiflexion. Distally sensation and n/v status intact Constitutional: well developed and well nourished; no acute distress Results & Data ([facility]) Vital Signs (Past 12 Hours) Vital Signs Temp Pulse Pulse Resp BP BP Pulse Ox 04/25/20 07:14 36.6 C 86 18 121/76 95 04/25/20 01:11 85 16 91 04/24/20 23:25 37 C 86 20 119/69 92 Laboratory Results H & H 04/10/20 04/23/20 04/24/20 Range/Units 14:52 05:23 05:25 Hgb 11.6 L 8.8 L 7.4 L (12.0-16.0) g/dL Hct 36.1 L 26.4 L 23.3 L (37-47) % 04/24/20 04/25/20 Range/Units 15:27 05:16 Hgb 8.7 L 8.0 L (12.0-16.0) g/dL Hct 26.2 L 24.8 L (37-47) % Coagulation 04/10/20 Range/Units 14:52 INR 1.5 H (0.9-1.1)
[2020-04-25] MEDS: CHOLECALCIFEROL 1,000 UNITS 25 MCG TAB PO SCH (08:37)
[2020-04-25] MEDS: MAGNESIUM OXIDE 400 MG TAB PO SCH (08:37)
[2020-04-25] MEDS: GABAPENTIN 300 MG CAP PO SCH ×2 (08:38→13:34)
[2020-04-25] MEDS: INSULIN ASPART 100 UNITS/ML 3 ML PEN SC SCH ×2 (08:38→12:19)
[2020-04-25] MEDS: POTASSIUM CHLORIDE 20 MEQ TABCR PO SCH (08:38)
[2020-04-25] MEDS: DOCUSATE SODIUM 100 MG CAP PO SCH (08:38)
[2020-04-25] MEDS: CALCIUM 600MG + VIT D 400 IU TAB PO SCH (08:39)
[2020-04-25] MEDS: RIVAROXABAN 20 MG TAB PO SCH (08:39)
[2020-04-25] MEDS: MULTIVITAMIN TAB PO SCH (08:39)
[2020-04-25] MEDS: dilTIAZem HCL 300 MG CAPCR PO SCH (08:41)
--- NOTE | 2020-04-25 13:04 | Hospitalist Progress Note ---
Date of Service April 25, 2020 Assessment & Plan (1) Arthritis of left knee: s/p left TKA tolerated well, no complications labs show mild drop in Hb to 7.4, required 1 PRBC transfusion, improved to 8.4 today pain controlled DVT proph with Xarelto daily d/c planning per ortho (2) Benign essential hypertension: continue Diltiazem, hold HCTZ until discharge BP stable (3) History of pulmonary embolus (PE): attributed to ovarian cancer no VTE since 2010 now on Xarelto for afib (4) Paroxysmal atrial fibrillation: occurred with shoulder surgery 2019 follows with Kip Ling continue Diltiazem, Xarelto rates controlled (5) Hyperlipidemia: statin therapy (6) GERD (gastroesophageal reflux disease): PPI (7) CKD (chronic kidney disease), stage III: Kidney function checked yesterday, stable (8) Prediabetes: Novolog SS while inpatient - does not take medications for this at home (9) Acute blood loss as cause of postoperative anemia: Required PRBC on 04/24, blood pressure stable Hgb checked x3 since last evening and is stable Recommend recheck in a few days at rehab Medicine will sign off at this time. Thank you for involving us in the care of this patient Admission and Anticipated Discharge Date Admission Date: April 22, 2020 Supervising Physician Co-Signing Physician Notes case d/w S Viki CULLEN. as above Subjective Ms Vega is feeling well except for some pain at her incision site. Per nursing, she has been having some serosanguineous drainage at the site which surgery is aware of. ROS Constitutional: no chills, aches, sweats or fever Respiratory: no sob,cough, sputum, or wheezing Cardiac: no chest pain, palpitations, edema, orthopnea or lightheadedness GI: no abdominal pain, nausea, vomiting, diarrhea or constipation : no dysuria or hesitancy Extremities: no joint pain or weakness Skin: no rash All other systems reviewed and negative Physical Exam Physical Exam: General: no distress Eyes: normal inspection, PERLL Respiratory: chest non tender, clear to auscultation, normal breath sounds, no respiratory distress, no accessory muscle use Cardiac: regular rate and rhythm, no rub or gallop, no murmur, no edema, no jvd GI/: active bowel sounds, no abd pain or tenderness, soft, non distended Extremities: normal range of motion, normal strength, non tender Neuro/Psych: alert and oriented x 3, normal mood and affect Skin: normal color, dry Results & Data Results & Data ([facility]) Vital Signs (Past 12 Hours) Vital Signs Temp Pulse Pulse Resp BP Pulse Ox 04/25/20 07:14 36.6 C 86 18 121/76 95 04/25/20 01:11 85 16 91 PG Care Time/CCT Total # of Minutes Spent Total Time Spent with Patient: Total time spent is greater than 50% in coordination of care (as documented) at patient's floor/unit and/or counseling patient: Coding Level of Care Code 23160 Subseq Hosp Care Lvl 2 Diagnoses Arthritis of left knee M17.12 Benign essential hypertension I10 History of pulmonary embolus (PE) Z86.711 Paroxysmal atrial fibrillation I48.0 Hyperlipidemia E78.2 Hyperlipidemia type: mixed hyperlipidemia GERD (gastroesophageal reflux disease) K21.9 CKD (chronic kidney disease), stage III N18.3 Prediabetes R73.03 Acute blood loss as cause of postoperative anemia D62 (1) Hyperlipidemia Hyperlipidemia type: mixed hyperlipidemia Qualified Code(s): E78.2 - Mixed hyperlipidemia
--- NOTE | 2020-05-03 23:35 | Discharge Summary (DS) ---
CHIEF COMPLAINT: Chronic left knee pain. HISTORY OF PRESENT ILLNESS: This is a 79-year-old female patient of Dr. Kahn's complaining of chronic left knee pain, longstanding, progressively getting worse. The patient has failed conservative treatment and elected to proceed with a left total knee arthroplasty. PAST MEDICAL HISTORY: Hypertension, hypercholesterolemia, pulmonary embolism, sleep apnea with use of CPAP, osteoarthritis, neck problems, back problems, spine problems, sciatica, obesity and ovarian cancer. POSTOPERATIVE COURSE: The patient underwent a left total knee arthroplasty on 04/22/2020. She was followed closely with medical consultation, DVT prophylaxis in the form of Xarelto, pain control. Postoperative day #2, the patient's hemoglobin dropped to 7.4. She was subsequently given 1 unit packed red blood cells. On discharge, her hemoglobin had improved to 8.4. Otherwise, an uneventful postoperative course. PHYSICAL EXAMINATION: On discharge, left knee Prineo dressing was clean, dry and intact. There is no redness or drainage. She had no calf tenderness. Negative Homans sign. Toes and ankle were mobile. Neurologically and neurovascularly she is intact in her left lower extremity. DIAGNOSES: Status post left total knee arthroplasty, postoperative anemia, status post 1 unit of packed red blood cell transfusion with hemoglobin 8.4 stable on discharge. She has a history of hypertension, hypercholesterolemia, pulmonary embolism, sleep apnea, osteoarthritis, neck problems, back problems, spine problems, sciatica, obesity and ovarian cancer. PLAN: The patient was discharged to [facility] on postoperative day #3. She will continue her preadmission medications with the addition of pain medications and Xarelto for DVT prophylaxis. She will follow up with rehab and blood work concerning her anemia next week and consult with her family physician with the results. Otherwise, she will follow up with Dr. Kahn as scheduled as an outpatient.
== END 2020-04-25 16:09 | DRG 470 ==
LOC: ASU 08:26 → 3W 13:22